=== PATIENT | female | born 1945 | race Caucasian/White ===

== ENCOUNTER 2018-08-17 09:29 | Inpatient (IN) | payer MEDICARE, OTHER | END 2018-08-21 15:30 | disposition home or self-care (01) | LOC: TELE-WESTW 21:20 → ER 09:29 → TELE 13:29 → TELE-WESTW 21:25 | DX: A41.9 Sepsis, unspecified organism (principal); J18.1 Lobar pneumonia, unspecified organism; N17.0 Acute kidney failure with tubular necrosis; E87.1 Hypo-osmolality and hyponatremia; J44.0 Chronic obstructive pulmonary disease with (acute) lower respiratory infection; E87.8 Other disorders of electrolyte and fluid balance, not elsewhere classified; E87.6 Hypokalemia; R06.03 Acute respiratory distress; I10 Essential (primary) hypertension; R79.1 Abnormal coagulation profile; Z96.651 Presence of right artificial knee joint; I12.9 Hypertensive chronic kidney disease with stage 1 through stage 4 chronic kidney disease, or unspecified chronic kidney disease; Z85.3 Personal history of malignant neoplasm of breast; N18.9 Chronic kidney disease, unspecified; D63.8 Anemia in other chronic diseases classified elsewhere ==

== ENCOUNTER → 2018-09-07 | Outpatient (CLI) | payer MEDICARE ==
[~2018-09-07] MED LIST: AMLO5TAB13 PO; LORA-655 PO; LOSA-46 PO
[2018-09-07 08:15] LABS: Basophils # (auto) 0.1 uL; Basophils % (auto) 1.4 % (0.0-2.0); Eosinophils # (auto) 0.4 uL; Eosinophils % (auto) 8.1 % (0.0-7.0); Hematocrit 40.9 % (36.0-46.0); Hemoglobin 13.7 g/dL (12.2-16.2); Lymphocytes # (auto) 1.4 uL; Lymphocytes % (auto) 30.6 % (10.0-50.0); Mean Corpuscular Hemoglobin 29.5 pg (28.0-32.0); Mean Corpuscular Hgb Conc. 33.5 g/dL (32.0-36.0); Monocytes # (auto) 0.6 uL; Monocytes % (auto) 12.9 % (0.0-12.0); Neutrophils # (auto) 2.1 uL; Nucleated Red Blood Cells % 0.2 %; Platelet Count (auto) 212 10^3/uL (140-450); Red Blood Cells 4.65 10^6/uL (4.0-5.20); Red Cell Distribution Width 14.8 % (11.8-14.3); White Blood Cell 4.5 10^3/uL (4.4-10.8)
[2018-09-07 08:38] LABS: Cholesterol 187 mg/dL (< 200); HDL Cholesterol 62 mg/dL (40-59); LDL Cholesterol 111 mg/dL (< 100); Triglycerides 92 mg/dL (< 150)
== END | disposition home or self-care (01) ==
LOC: LAB 07:23
PROVIDERS: ATTEND Internal Medicine
DX: D64.9 Anemia, unspecified (principal); I10 Essential (primary) hypertension
CPT/HCPCS: 36415; 80061; 85025

== ENCOUNTER → 2018-12-15 | Outpatient (CLI) | payer MEDICARE ==
[2018-12-15 11:35] LABS: Urine WBC None Seen /hpf (0 - 5)
[2018-12-15 11:44] LABS: Basophils # (auto) 0.1 uL; Basophils % (auto) 1.3 % (0.0-2.0); Eosinophils # (auto) 0.5 uL; Eosinophils % (auto) 7.1 % (0.0-7.0); Hematocrit 46.5 % (36.0-46.0); Hemoglobin 15.4 g/dL (12.2-16.2); Lymphocytes % (auto) 30.1 % (10.0-50.0); Mean Corpuscular Hemoglobin 28.8 pg (28.0-32.0); Mean Corpuscular Hgb Conc. 33.1 g/dL (32.0-36.0); Mean Corpuscular Volume 86.9 fL (80.0-100.0); Monocytes # (auto) 0.6 uL; Monocytes % (auto) 9.4 % (0.0-12.0); Neutrophils # (auto) 3.5 uL; Neutrophils % (auto) 52.1 % (37.0-80.0); Nucleated Red Blood Cells % 0.1 %; Platelet Count (auto) 178 10^3/uL (140-450); Red Blood Cells 5.36 10^6/uL (4.0-5.20); Red Cell Distribution Width 13.9 % (11.8-14.3); White Blood Cell 6.7 10^3/uL (4.4-10.8)
[2018-12-15 11:52] LABS: Urine Bacteria NONE SEEN /hpf (None Seen); Urine Blood Negative /uL (Negative); Urine Specific Gravity 1.007 (1.001-1.035)
[2018-12-15 11:58] LABS: INR 0.99 (0.9-1.15); Partial Thromboplastin Time 27.5 sec (23.64-32.05); Prothrombin Time 10.7 sec (9.06-12.60)
[2018-12-15 12:03] LABS: Albumin 4.1 g/dL (3.4-5.0); Calcium 9.3 mg/dL (8.5-10.1); Potassium 4.3 mmol/L (3.5-5.1)
[2018-12-15 12:08] LABS: BUN/Creatinine Ratio 28.6; Bilirubin, Total 0.5 mg/dL (0.2-1.0); Total Protein 7.9 g/dL (6.4-8.2)
== END | disposition home or self-care (01) ==
LOC: LAB 10:28
PROVIDERS: ATTEND Internal Medicine
DX: Z01.818 Encounter for other preprocedural examination (principal); J44.9 Chronic obstructive pulmonary disease, unspecified; I12.9 Hypertensive chronic kidney disease with stage 1 through stage 4 chronic kidney disease, or unspecified chronic kidney disease; N18.9 Chronic kidney disease, unspecified
CPT/HCPCS: 36415; 80053; 81001; 85025; 85610; 85730

== ENCOUNTER → 2019-04-28 | Outpatient (CLI) | payer MEDICARE ==
[~2019-04-28] MED LIST changes: -AMLO5TAB13 PO; +AMLO5TAB15 PO; -LOSA-46 PO; +LOSA-69 PO
== END | disposition home or self-care (01) ==
LOC: XYW 07:46
PROVIDERS: ATTEND Internal Medicine
DX: I10 Essential (primary) hypertension (principal)
CPT/HCPCS: 93306

== ENCOUNTER 2019-07-05 05:22 | Emergency (ER) | payer MEDICARE ==
[~2019-07-05] VITALS: Ht 167.6 cm; Wt 61.2 kg
[2019-07-05] MEDS ORDERED: cloNIDine HCL 0.1 MG TAB PO ONE (05:45)
[2019-07-05 06:25] LABS: Basophils # (auto) 0.1 uL; Basophils % (auto) 1.9 % (0.0-2.0); Eosinophils # (auto) 0.2 uL; Eosinophils % (auto) 4.2 % (0.0-7.0); Hematocrit 49.1 % (36.0-46.0); Hemoglobin 16.4 g/dL (12.2-16.2); Lymphocytes # (auto) 0.7 uL; Lymphocytes % (auto) 12.8 % (10.0-50.0); Mean Corpuscular Hemoglobin 28.8 pg (28.0-32.0); Mean Corpuscular Hgb Conc. 33.3 g/dL (32.0-36.0); Mean Corpuscular Volume 86.3 fL (80.0-100.0); Monocytes % (auto) 17.7 % (0.0-12.0); Neutrophils # (auto) 3.5 uL; Neutrophils % (auto) 63.4 % (37.0-80.0); Nucleated Red Blood Cells % 0.1 %; Platelet Count (auto) 182 10^3/uL (140-450); Red Blood Cells 5.69 10^6/uL (4.0-5.20); Red Cell Distribution Width 14.2 % (11.8-14.3); White Blood Cell 5.6 10^3/uL (4.4-10.8)
[2019-07-05 06:28] LABS: INR 1.06 (0.9-1.15); Partial Thromboplastin Time 29.1 sec (23.64-32.05)
[2019-07-05 06:33] LABS: Chloride 104 mmol/L (98-107); Potassium 3.7 mmol/L (3.5-5.1); Sodium 138 mmol/L (136-145)
[2019-07-05 06:42] LABS: Alanine Aminotransferase 28 U/L (13-56); Albumin 4.4 g/dL (3.4-5.0); Alkaline Phosphatase 95 U/L (45-117); Anion Gap 7 (5-15); Aspartate Aminotransferase 32 U/L (15-37); BUN/Creatinine Ratio 19.7; Bilirubin, Total 0.8 mg/dL (0.2-1.0); Blood Urea Nitrogen 15 mg/dL (7-18); Carbon Dioxide 27 mmol/L (21-32); GFR African American 95 mL/min; GFR Non-African American 79 mL/min; Glucose 105 mg/dL (74-106); Total Protein 8.5 g/dL (6.4-8.2)
[2019-07-05] MEDS ORDERED: SODIUM CHLORIDE 0.9% 1,000 ML IV ONE (07:56)
[2019-07-05] MEDS ORDERED: cefTRIAXone 1GM/50ML D5W 50 ML IV ONE (08:00)
[2019-07-05 09:18] VITALS: BP 129/68
== END 2019-07-05 09:36 | disposition home or self-care (01) ==
LOC: ER 05:22
DX: R00.0 Tachycardia, unspecified (principal); J47.9 Bronchiectasis, uncomplicated; I10 Essential (primary) hypertension; Z90.710 Acquired absence of both cervix and uterus; Z88.2 Allergy status to sulfonamides; Z88.8 Allergy status to other drugs, medicaments and biological substances; Z79.899 Other long term (current) drug therapy
CPT/HCPCS: 36415; 71045; 80053; 83880; 84484; 85025; 85610; 85730; 93005; 96365; 99284; J0696; J7030

== ENCOUNTER 2019-12-12 16:46 | Emergency (ER) | payer MEDICARE ==
[~2019-12-12] VITALS: Ht 152.4 cm; Wt 62.1 kg
[2019-12-12 17:37] LABS: Basophils # (auto) 0.1 10 ^3/uL (0-0.2); Basophils % (auto) 1.2 % (0.0-2.0); Eosinophils # (auto) 0.4 10 ^3/uL (0-0.8); Eosinophils % (auto) 4.8 % (0.0-7.0); Hematocrit 48.2 % (36.0-46.0); Hemoglobin 16.1 g/dL (12.2-16.2); Lymphocytes # (auto) 2.4 10 ^3/uL (0.4-5.4); Lymphocytes % (auto) 32.1 % (10.0-50.0); Mean Corpuscular Hemoglobin 29.4 pg (28.0-32.0); Mean Corpuscular Hgb Conc. 33.3 g/dL (32.0-36.0); Mean Corpuscular Volume 88.3 fL (80.0-100.0); Monocytes # (auto) 0.8 10 ^3/uL (0-1.3); Monocytes % (auto) 10.4 % (0.0-12.0); Neutrophils # (auto) 3.9 10 ^3/uL (1.6-8.6); Neutrophils % (auto) 51.5 % (37.0-80.0); Nucleated Red Blood Cells % 0.2 %; Platelet Count (auto) 205 10^3/uL (140-450); Red Blood Cells 5.46 10^6/uL (4.0-5.20); Red Cell Distribution Width 14.3 % (11.8-14.3); White Blood Cell 7.6 10^3/uL (4.4-10.8)
[2019-12-12 17:50] LABS: INR 1.01 (0.9-1.15); Partial Thromboplastin Time 28.2 sec (23.64-32.05)
[2019-12-12 20:13] LABS: Albumin 4.1 g/dL (3.4-5.0); BUN/Creatinine Ratio 28.7; Calcium 9.2 mg/dL (8.5-10.1); Potassium 3.8 mmol/L (3.5-5.1)
[2019-12-12 20:16] LABS: Bilirubin, Total 0.4 mg/dL (0.2-1.0); Total Protein 8.4 g/dL (6.4-8.2)
[2019-12-12 22:00] VITALS: BP 168/85
[2019-12-12] MEDS ORDERED: methylPREDNISolone SOD SUCC 40 MG/ML VL IV ONE (22:00)
== END 2019-12-12 21:39 | disposition left against medical advice (07) ==
LOC: ER 16:46
DX: J45.901 Unspecified asthma with (acute) exacerbation (principal); R04.2 Hemoptysis; I10 Essential (primary) hypertension; Z90.710 Acquired absence of both cervix and uterus
CPT/HCPCS: 36415; 71046; 80053; 85025; 85610; 85730; 96374; 99284; J2920

== ENCOUNTER 2019-12-14 16:28 | Inpatient (IN) | payer MEDICARE ==
[~2019-12-14] VITALS: Ht 167.6 cm; Wt 68.4 kg
[2019-12-14] MEDS ORDERED: ASPirin 81 mg TAB PO ONE (16:45)
[2019-12-14 17:34] LABS: Basophils # (auto) 0.1 10 ^3/uL (0-0.2); Basophils % (auto) 1.5 % (0.0-2.0); Eosinophils # (auto) 0.3 10 ^3/uL (0-0.8); Eosinophils % (auto) 3.4 % (0.0-7.0); Hematocrit 47.6 % (36.0-46.0); Hemoglobin 15.6 g/dL (12.2-16.2); Lymphocytes # (auto) 3.1 10 ^3/uL (0.4-5.4); Lymphocytes % (auto) 35.8 % (10.0-50.0); Mean Corpuscular Hemoglobin 29.4 pg (28.0-32.0); Mean Corpuscular Hgb Conc. 32.9 g/dL (32.0-36.0); Mean Corpuscular Volume 89.5 fL (80.0-100.0); Monocytes # (auto) 0.9 10 ^3/uL (0-1.3); Monocytes % (auto) 10.4 % (0.0-12.0); Neutrophils # (auto) 4.3 10 ^3/uL (1.6-8.6); Neutrophils % (auto) 48.9 % (37.0-80.0); Nucleated Red Blood Cells % 0.1 %; Platelet Count (auto) 214 10^3/uL (140-450); Red Blood Cells 5.32 10^6/uL (4.0-5.20); Red Cell Distribution Width 14.1 % (11.8-14.3); White Blood Cell 8.7 10^3/uL (4.4-10.8)
[2019-12-14 17:47] LABS: INR 1.01 (0.9-1.15); Partial Thromboplastin Time 26.8 sec (23.64-32.05)
[2019-12-14 17:52] LABS: Albumin 4.1 g/dL (3.4-5.0); Anion Gap 2 (5-15); Blood Urea Nitrogen 23 mg/dL (7-18); Calcium 9.3 mg/dL (8.5-10.1); Carbon Dioxide 31 mmol/L (21-32); Chloride 105 mmol/L (98-107); Glucose 94 mg/dL (74-106); Potassium 5.2 mmol/L (3.5-5.1); Sodium 138 mmol/L (136-145)
[2019-12-14 17:54] LABS: Alanine Aminotransferase 27 U/L (13-56); Aspartate Aminotransferase 27 U/L (15-37); BUN/Creatinine Ratio 28.8; GFR African American 90 mL/min; GFR Non-African American 74 mL/min
[2019-12-14 18:01] LABS: Alkaline Phosphatase 100 U/L (45-117); Bilirubin, Total 0.4 mg/dL (0.2-1.0); Total Protein 8.4 g/dL (6.4-8.2)
[2019-12-14] MEDS ORDERED: cloNIDine HCL 0.1 MG TAB PO PRN (21:15)
[2019-12-14] MEDS ORDERED: DOCUSATE SOD 100 MG CAP PO PRN (21:15)
[2019-12-14] MEDS: HCTZ 25 MG TAB PO SCH (21:22)
[2019-12-14] MEDS ORDERED: NITROGLYCERIN 0.4 MG SL TAB SL PRN (21:30)
[2019-12-14] MEDS ORDERED: MORPHINE SULF INJ 2 MG/ML SYRINGE 1ML IV PRN (21:30)
[2019-12-14] MEDS: ENOXAPARIN SOD 40 MG/0.4 ML SYRINGE SC SCH (22:00)
[2019-12-14] MEDS: FAMOTIDINE 20 MG TAB PO SCH (22:00)
[2019-12-14 23:28] VITALS: BP 145/86
[2019-12-14] MEDS ORDERED: ASPI81CH43 PO (23:45)
[2019-12-14] MEDS ORDERED: METO25TA5 PO (23:46)
[2019-12-15 05:00] VITALS: BP 140/78
[2019-12-15 06:10] LABS: Basophils # (auto) 0.2 10 ^3/uL (0-0.2); Basophils % (auto) 3.7 % (0.0-2.0); Eosinophils # (auto) 0.4 10 ^3/uL (0-0.8); Eosinophils % (auto) 5.9 % (0.0-7.0); Hematocrit 42.1 % (36.0-46.0); Hemoglobin 14.4 g/dL (12.2-16.2); Lymphocytes % (auto) 31.7 % (10.0-50.0); Mean Corpuscular Hgb Conc. 34.2 g/dL (32.0-36.0); Mean Corpuscular Volume 87.5 fL (80.0-100.0); Monocytes # (auto) 0.7 10 ^3/uL (0-1.3); Monocytes % (auto) 11.8 % (0.0-12.0); Neutrophils # (auto) 2.9 10 ^3/uL (1.6-8.6); Neutrophils % (auto) 46.9 % (37.0-80.0); Nucleated Red Blood Cells % 0.1 %; Platelet Count (auto) 169 10^3/uL (140-450); Red Blood Cells 4.81 10^6/uL (4.0-5.20); White Blood Cell 6.2 10^3/uL (4.4-10.8)
[2019-12-15 06:31] LABS: Potassium 3.9 mmol/L (3.5-5.1)
[2019-12-15 06:35] LABS: BUN/Creatinine Ratio 33.8; Calcium 8.9 mg/dL (8.5-10.1)
[2019-12-15 08:00] VITALS: BP_SYST 119; BP_SYST 136; BP_DIAS 59; BP_DIAS 78
[2019-12-15] MEDS: ENOXAPARIN SOD 40 MG/0.4 ML SYRINGE SC SCH (09:30)
[2019-12-15] MEDS: FAMOTIDINE 20 MG TAB PO SCH ×3 (09:30→22:15)
[2019-12-15] MEDS: ASPirin 81 mg TAB PO SCH (09:31)
[2019-12-15] MEDS: HCTZ 25 MG TAB PO SCH (09:32)
[2019-12-15] MEDS ORDERED: LOSARTAN POTASSIUM 50 MG TAB PO SCH (10:00)
[2019-12-15] MEDS: LOSARTAN POTASSIUM 50 MG TAB PO SCH (10:50)
[2019-12-15 12:00] VITALS: BP 125/58
[2019-12-15 12:37] LABS: Cholesterol 164 mg/dL (< 200)
[2019-12-15 12:40] LABS: HDL Cholesterol 74 mg/dL (40-59); LDL Cholesterol 78 mg/dL (< 100); Triglycerides 80 mg/dL (< 150)
[2019-12-15 16:57] VITALS: BP 122/73
[2019-12-15 22:00] VITALS: BP 113/70
[2019-12-16 04:56] VITALS: BP 130/70
[2019-12-16 08:00] VITALS: BP_SYST 104; BP_SYST 136; BP_DIAS 65; BP_DIAS 78
[2019-12-16] MEDS: ASPirin 81 mg TAB PO SCH (08:56)
[2019-12-16] MEDS: HCTZ 25 MG TAB PO SCH (08:58)
[2019-12-16] MEDS: FAMOTIDINE 20 MG TAB PO SCH ×2 (08:58→21:27)
[2019-12-16] MEDS: ENOXAPARIN SOD 40 MG/0.4 ML SYRINGE SC SCH (08:58)
[2019-12-16] MEDS: ACETAMINOPHEN 325 MG TAB PO PRN ×2 (09:02→20:29)
[2019-12-16] MEDS: LOSARTAN POTASSIUM 50 MG TAB PO SCH (10:00)
[2019-12-16 12:00] VITALS: BP 120/73
[2019-12-16 14:16] LABS: Urine Bacteria NONE SEEN /hpf (None Seen); Urine Blood Negative /uL (Negative); Urine Mucus FEW (None Seen); Urine Specific Gravity 1.016 (1.001-1.035); Urine WBC 1 /hpf (0 - 5)
[2019-12-16 16:30] VITALS: BP 138/78
[2019-12-16 20:00] VITALS: BP 108/66
[2019-12-16] MEDS: TEMAZEPAM 15 MG CAP PO PRN (21:29)
[2019-12-16 21:38] VITALS: BP 108/66
[2019-12-17 05:06] VITALS: BP 129/63
[2019-12-17] MEDS: ACETAMINOPHEN 325 MG TAB PO PRN ×2 (05:36→14:45)
[2019-12-17 08:00] VITALS: BP 121/67
[2019-12-17] MEDS ORDERED: FLUMAZENIL 0.1 MG/ML INJ 10ML MDV IV ONE (08:10)
[2019-12-17] MEDS ORDERED: EPINEPHrine HCL 1 MG/1 ML AMP ONE (08:10)
[2019-12-17] MEDS ORDERED: SODIUM CHLORIDE LOCK 10 ML ONE ×2 (08:10→08:13)
[2019-12-17] MEDS ORDERED: NALOXONE HCL 0.4 MG/ML VIAL ONE (08:10)
[2019-12-17] MEDS ORDERED: LIDOCAINE 2%HCL (LOCAL ANESTH.) INJ 20ML MDV ONE (08:10)
[2019-12-17] MEDS ORDERED: LIDOCAINE HCL 2% TOP JELLY 5ML TOP ONE (08:11)
[2019-12-17] MEDS ORDERED: diphenhdrAMINE HCL 50 MG/1 ML VL ONE (08:11)
[2019-12-17] MEDS ORDERED: GLYCOPYRROLATE 0.2 MG/ML 1ML VIAL ONE (08:11)
[2019-12-17] MEDS ORDERED: ACETYLCYSTEINE 10 %(100MG/ML) SOL 4ML NEB ONE (08:30)
[2019-12-17] MEDS: LOSARTAN POTASSIUM 50 MG TAB PO SCH (08:46)
[2019-12-17] MEDS: fentaNYL CITRATE 100 MCG/2 ML VL ONE ×2 (09:56→09:58)
[2019-12-17] MEDS: MIDAZOLAM HCL 5 MG/ML-1ML VIAL ONE ×2 (09:57→09:59)
[2019-12-17 12:00] VITALS: BP 127/79
[2019-12-17] MEDS: FAMOTIDINE 20 MG TAB PO SCH ×2 (12:56→21:33)
[2019-12-17] MEDS: ASPirin 81 mg TAB PO SCH (12:56)
[2019-12-17] MEDS: HCTZ 25 MG TAB PO SCH (12:58)
[2019-12-17] MEDS: ENOXAPARIN SOD 40 MG/0.4 ML SYRINGE SC SCH (12:59)
[2019-12-17 17:00] VITALS: BP 106/64
[2019-12-17] MEDS: TEMAZEPAM 15 MG CAP PO PRN (21:33)
[2019-12-17 22:27] VITALS: BP 91/45
[2019-12-18 05:12] VITALS: BP 154/75
[2019-12-18 09:00] VITALS: BP 107/50
[2019-12-18] MEDS: LOSARTAN POTASSIUM 50 MG TAB PO SCH (09:38)
[2019-12-18] MEDS: ASPirin 81 mg TAB PO SCH (09:38)
[2019-12-18] MEDS: ENOXAPARIN SOD 40 MG/0.4 ML SYRINGE SC SCH (09:40)
[2019-12-18] MEDS: FAMOTIDINE 20 MG TAB PO SCH (09:40)
[2019-12-18] MEDS: HCTZ 25 MG TAB PO SCH (09:40)
[2019-12-18 11:31] VITALS: BP 107/50
== END 2019-12-18 12:00 | disposition home or self-care (01) | DRG 206 ==
LOC: ER 16:28 → TELE 16:29 → TELE-EAST 22:40
PROVIDERS: ADMIT Nurse Practitioner; ATTEND Family Medicine
PROC: 0B9D8ZX Drainage of Right Middle Lung Lobe, Via Natural or Artificial Opening Endoscopic, Diagnostic (ICD-10-PCS; principal; 2019-12-17 09:45)
DX: J98.4 Other disorders of lung (principal); R04.2 Hemoptysis; J98.11 Atelectasis; A31.9 Mycobacterial infection, unspecified; I20.0 Unstable angina; J18.9 Pneumonia, unspecified organism; I10 Essential (primary) hypertension; J47.9 Bronchiectasis, uncomplicated; F41.9 Anxiety disorder, unspecified; I72.8 Aneurysm of other specified arteries; Z80.1 Family history of malignant neoplasm of trachea, bronchus and lung; Z90.710 Acquired absence of both cervix and uterus
CPT/HCPCS: 31624; 36415; 71045; 71250; 80048; 80053; 80061; 81001; 84443; 84484; 85025; 85379; 85610; 85730; 87070; 87077; 87186; 87205; 93005; G0378; J0171; J2250

== ENCOUNTER 2020-05-04 08:47 | Emergency (ER) | payer MEDICARE ==
[~2020-05-04] VITALS: Ht 167.6 cm; Wt 63.5 kg
[~2020-05-04 08:47] MED LIST changes: -AMLO5TAB15 PO; +ASPI81CH43 PO; -LORA-655 PO; -LOSA-69 PO; +METO25TA5 PO
[2020-05-04] MEDS ORDERED: SODIUM CHLORIDE 0.9% 1,000 ML IV ONE ×2 (09:15)
[2020-05-04 09:37] LABS: Basophils # (auto) 0.1 10 ^3/uL (0-0.2); Basophils % (auto) 1.2 % (0.0-2.0); Eosinophils # (auto) 0.3 10 ^3/uL (0-0.8); Eosinophils % (auto) 5.2 % (0.0-7.0); Hematocrit 44.4 % (36.0-46.0); Lymphocytes # (auto) 1.6 10 ^3/uL (0.4-5.4); Lymphocytes % (auto) 26.6 % (10.0-50.0); Mean Corpuscular Hemoglobin 29.8 pg (28.0-32.0); Mean Corpuscular Hgb Conc. 33.8 g/dL (32.0-36.0); Mean Corpuscular Volume 88.2 fL (80.0-100.0); Monocytes # (auto) 0.6 10 ^3/uL (0-1.3); Monocytes % (auto) 9.3 % (0.0-12.0); Neutrophils # (auto) 3.5 10 ^3/uL (1.6-8.6); Neutrophils % (auto) 57.7 % (37.0-80.0); Nucleated Red Blood Cells % 0.1 %; Platelet Count (auto) 186 10^3/uL (140-450); Red Blood Cells 5.03 10^6/uL (4.0-5.20); Red Cell Distribution Width 13.7 % (11.8-14.3); White Blood Cell 6.1 10^3/uL (4.4-10.8)
[2020-05-04 09:45] LABS: BUN/Creatinine Ratio 28.6; Calcium 8.8 mg/dL (8.5-10.1); Potassium 3.7 mmol/L (3.5-5.1)
[2020-05-04 09:50] LABS: Bilirubin, Total 0.4 mg/dL (0.2-1.0); Total Protein 7.6 g/dL (6.4-8.2)
[2020-05-04 11:14] VITALS: BP 156/82
== END 2020-05-04 11:16 | disposition home or self-care (01) ==
LOC: ER 08:47
DX: R07.89 Other chest pain (principal); F41.9 Anxiety disorder, unspecified; J45.909 Unspecified asthma, uncomplicated; I10 Essential (primary) hypertension; Z79.899 Other long term (current) drug therapy; Z90.10 Acquired absence of unspecified breast and nipple; Z88.7 Allergy status to serum and vaccine; Z88.2 Allergy status to sulfonamides; Z88.8 Allergy status to other drugs, medicaments and biological substances
CPT/HCPCS: 36415; 71045; 80053; 84484; 85025; 93005; 96360

== ENCOUNTER 2020-10-21 11:40 | Emergency (ER) | payer MEDICARE ==
[~2020-10-21] VITALS: Ht 167.6 cm; Wt 64.0 kg
[2020-10-21 12:38] LABS: Urine Bacteria NONE SEEN /hpf (None Seen); Urine Blood Negative /uL (Negative); Urine Specific Gravity 1.004 (1.001-1.035); Urine WBC <1 /hpf (0 - 5)
[2020-10-21 12:44] LABS: Basophils # (auto) 0.1 10 ^3/uL (0-0.2); Basophils % (auto) 1.1 % (0.0-2.0); Eosinophils # (auto) 0.3 10 ^3/uL (0-0.8); Eosinophils % (auto) 5.5 % (0.0-7.0); Hematocrit 44.4 % (36.0-46.0); Hemoglobin 15.1 g/dL (12.2-16.2); Lymphocytes # (auto) 1.6 10 ^3/uL (0.4-5.4); Lymphocytes % (auto) 25.6 % (10.0-50.0); Mean Corpuscular Hemoglobin 29.8 pg (28.0-32.0); Mean Corpuscular Volume 87.7 fL (80.0-100.0); Monocytes # (auto) 0.7 10 ^3/uL (0-1.3); Monocytes % (auto) 10.7 % (0.0-12.0); Neutrophils # (auto) 3.5 10 ^3/uL (1.6-8.6); Neutrophils % (auto) 57.1 % (37.0-80.0); Nucleated Red Blood Cells % 0.1 %; Platelet Count (auto) 188 10^3/uL (140-450); Red Blood Cells 5.06 10^6/uL (4.0-5.20); Red Cell Distribution Width 13.9 % (11.8-14.3); White Blood Cell 6.1 10^3/uL (4.4-10.8)
[2020-10-21 12:59] LABS: INR 1.02 (0.9-1.15); Partial Thromboplastin Time 24.8 sec (23.0-31.2)
[2020-10-21 13:03] LABS: Alanine Aminotransferase 25 U/L (13-56); Albumin 4.2 g/dL (3.4-5.0); Anion Gap 7 (5-15); Aspartate Aminotransferase 30 U/L (15-37); BUN/Creatinine Ratio 15.1; Blood Urea Nitrogen 11 mg/dL (7-18); Carbon Dioxide 27 mmol/L (21-32); Chloride 104 mmol/L (98-107); GFR African American 99 mL/min; GFR Non-African American 82 mL/min; Glucose 95 mg/dL (74-106); Magnesium 2.1 mg/dL (1.6-2.6); Potassium 3.9 mmol/L (3.5-5.1); Sodium 138 mmol/L (136-145)
[2020-10-21 13:08] LABS: Alkaline Phosphatase 77 U/L (45-117); Bilirubin, Total 0.6 mg/dL (0.2-1.0)
[2020-10-21 13:58] VITALS: BP 140/68
== END 2020-10-21 14:37 | disposition home or self-care (01) ==
LOC: ER 11:40
DX: J18.9 Pneumonia, unspecified organism (principal); R07.89 Other chest pain; I10 Essential (primary) hypertension; Z90.710 Acquired absence of both cervix and uterus
CPT/HCPCS: 36415; 71046; 80053; 81001; 83735; 83880; 84484; 85025; 85610; 85730; 93005

== ENCOUNTER → 2020-10-27 | Outpatient (CLI) | payer MEDICARE ==
[~2020-10-27] MED LIST changes: +IOHEXOL 350 MG/ML 100ML IJ ONE
== END | disposition home or self-care (01) ==
LOC: CT 15:12
PROVIDERS: ATTEND Internal Medicine
DX: J47.9 Bronchiectasis, uncomplicated (principal); I51.7 Cardiomegaly; K44.9 Diaphragmatic hernia without obstruction or gangrene
CPT/HCPCS: 71275; Q9967

== ENCOUNTER → 2022-03-27 | Outpatient (CLI) | payer MEDICARE ==
[~2022-03-27] MED LIST changes: -IOHEXOL 350 MG/ML 100ML IJ ONE
[2022-03-27 07:35] LABS: Basophils # (auto) 0.1 10 ^3/uL (0-0.2); Basophils % (auto) 1.2 % (0.0-2.0); Eosinophils # (auto) 0.2 10 ^3/uL (0-0.8); Eosinophils % (auto) 3.1 % (0.0-7.0); Hematocrit 44.7 % (36.0-46.0); Lymphocytes # (auto) 1.6 10 ^3/uL (0.4-5.4); Lymphocytes % (auto) 29.7 % (10.0-50.0); Mean Corpuscular Hemoglobin 29.5 pg (28.0-32.0); Mean Corpuscular Hgb Conc. 33.5 g/dL (32.0-36.0); Mean Corpuscular Volume 88.1 fL (80.0-100.0); Monocytes # (auto) 0.6 10 ^3/uL (0-1.3); Monocytes % (auto) 11.8 % (0.0-12.0); Neutrophils % (auto) 54.2 % (37.0-80.0); Red Blood Cells 5.07 10^6/uL (4.0-5.20); Red Cell Distribution Width 13.4 % (11.8-14.3); White Blood Cell 5.5 10^3/uL (4.4-10.8)
[2022-03-27 07:52] LABS: Calcium 9.2 mg/dL (8.5-10.1); Potassium 3.8 mmol/L (3.5-5.1)
[2022-03-27 07:55] LABS: BUN/Creatinine Ratio 19.8; Bilirubin, Total 0.5 mg/dL (0.2-1.0); Total Protein 7.4 g/dL (6.4-8.2)
== END | disposition home or self-care (01) ==
LOC: LAB 06:47
PROVIDERS: ATTEND Internal Medicine
DX: E04.1 Nontoxic single thyroid nodule (principal); I10 Essential (primary) hypertension; J44.9 Chronic obstructive pulmonary disease, unspecified; A31.0 Pulmonary mycobacterial infection
CPT/HCPCS: 36415; 80053; 82607; 84443; 85025

== ENCOUNTER → 2022-08-23 | Outpatient (CLI) | payer MEDICARE ==
[2022-08-23 08:16] LABS: Basophils # (auto) 0.1 10 ^3/uL (0-0.2); Basophils % (auto) 1.7 % (0.0-2.0); Eosinophils # (auto) 0.2 10 ^3/uL (0-0.8); Eosinophils % (auto) 4.4 % (0.0-7.0); Hematocrit 48.5 % (36.0-46.0); Hemoglobin 16.3 g/dL (12.2-16.2); Lymphocytes # (auto) 1.9 10 ^3/uL (0.4-5.4); Lymphocytes % (auto) 36.1 % (10.0-50.0); Mean Corpuscular Hemoglobin 29.2 pg (28.0-32.0); Mean Corpuscular Hgb Conc. 33.5 g/dL (32.0-36.0); Monocytes # (auto) 0.7 10 ^3/uL (0-1.3); Monocytes % (auto) 13.6 % (0.0-12.0); Neutrophils # (auto) 2.4 10 ^3/uL (1.6-8.6); Neutrophils % (auto) 44.2 % (37.0-80.0); Nucleated Red Blood Cells % 0.2 %; Red Blood Cells 5.58 10^6/uL (4.0-5.20); Red Cell Distribution Width 13.7 % (11.8-14.3); White Blood Cell 5.3 10^3/uL (4.4-10.8)
[2022-08-23 08:38] LABS: Albumin 4.3 g/dL (3.4-5.0); Calcium 9.4 mg/dL (8.5-10.1); Potassium 3.4 mmol/L (3.5-5.1)
[2022-08-23 08:41] LABS: BUN/Creatinine Ratio 28.8; Bilirubin, Total 0.5 mg/dL (0.2-1.0)
== END | disposition home or self-care (01) ==
LOC: LAB 07:56
PROVIDERS: ATTEND Internal Medicine
DX: I10 Essential (primary) hypertension (principal); A31.0 Pulmonary mycobacterial infection; R63.4 Abnormal weight loss
CPT/HCPCS: 36415; 80053; 84443; 85025

== ENCOUNTER 2022-11-20 13:28 | Emergency (ER) | payer MEDICARE ==
[~2022-11-20] VITALS: Ht 167.6 cm; Wt 52.9 kg
[2022-11-20 14:00] VITALS: BP 143/97
[2022-11-20 15:14] LABS: Basophils # (auto) 0.1 10 ^3/uL (0-0.2); Eosinophils # (auto) 0.1 10 ^3/uL (0-0.8); Eosinophils % (auto) 1.4 % (0.0-7.0); Hematocrit 47.9 % (36.0-46.0); Hemoglobin 16.4 g/dL (12.2-16.2); Lymphocytes # (auto) 0.4 10 ^3/uL (0.4-5.4); Lymphocytes % (auto) 5.9 % (10.0-50.0); Mean Corpuscular Hemoglobin 29.6 pg (28.0-32.0); Mean Corpuscular Hgb Conc. 34.3 g/dL (32.0-36.0); Mean Corpuscular Volume 86.2 fL (80.0-100.0); Monocytes # (auto) 1.2 10 ^3/uL (0-1.3); Monocytes % (auto) 17.7 % (0.0-12.0); Nucleated Red Blood Cells % 0.2 %; Red Blood Cells 5.56 10^6/uL (4.0-5.20); Red Cell Distribution Width 14.2 % (11.8-14.3); White Blood Cell 6.7 10^3/uL (4.4-10.8)
[2022-11-20 15:34] LABS: Potassium 3.6 mmol/L (3.5-5.1)
[2022-11-20 15:42] LABS: Albumin 4.7 g/dL (3.4-5.0); BUN/Creatinine Ratio 19.2 (10.0-20.0); Bilirubin, Total 0.8 mg/dL (0.2-1.0); Calcium 9.3 mg/dL (8.5-10.1); Total Protein 8.1 g/dL (6.4-8.2)
== END 2022-11-21 00:35 | disposition left against medical advice (07) ==
LOC: ER 13:28
DX: R06.02 Shortness of breath (principal); R05.9 Cough, unspecified; J45.909 Unspecified asthma, uncomplicated; I10 Essential (primary) hypertension; Z90.710 Acquired absence of both cervix and uterus
CPT/HCPCS: 36415; 71045; 80053; 84484; 85025; 93005

== ENCOUNTER 2022-12-23 13:45 | Emergency (ER) | payer MEDICARE ==
[~2022-12-23] VITALS: Ht 167.6 cm; Wt 60.0 kg
[2022-12-23 14:43] LABS: Basophils # (auto) 0.1 10 ^3/uL (0-0.2); Basophils % (auto) 0.9 % (0.0-2.0); Eosinophils # (auto) 0.4 10 ^3/uL (0-0.8); Eosinophils % (auto) 4.9 % (0.0-7.0); Hematocrit 43.2 % (36.0-46.0); Hemoglobin 14.5 g/dL (12.2-16.2); Lymphocytes # (auto) 1.6 10 ^3/uL (0.4-5.4); Lymphocytes % (auto) 21.5 % (10.0-50.0); Mean Corpuscular Hemoglobin 29.4 pg (28.0-32.0); Mean Corpuscular Hgb Conc. 33.6 g/dL (32.0-36.0); Mean Corpuscular Volume 87.5 fL (80.0-100.0); Monocytes # (auto) 0.9 10 ^3/uL (0-1.3); Monocytes % (auto) 12.1 % (0.0-12.0); Neutrophils # (auto) 4.4 10 ^3/uL (1.6-8.6); Neutrophils % (auto) 60.6 % (37.0-80.0); Nucleated Red Blood Cells % 0.1 %; Red Blood Cells 4.94 10^6/uL (4.0-5.20); White Blood Cell 7.3 10^3/uL (4.4-10.8)
[2022-12-23 14:59] LABS: Albumin 3.8 g/dL (3.4-5.0); Calcium 8.9 mg/dL (8.5-10.1); Potassium 4.2 mmol/L (3.5-5.1)
[2022-12-23 15:04] LABS: BUN/Creatinine Ratio 25.9 (10.0-20.0); Bilirubin, Total 0.4 mg/dL (0.2-1.0)
[2022-12-23] MEDS ORDERED: MECLIZINE HCL 25 MG TAB PO ONE (15:30)
[2022-12-23 16:30] VITALS: BP 152/98
== END 2022-12-23 16:35 | disposition home or self-care (01) ==
LOC: ER 13:45
DX: R42 Dizziness and giddiness (principal); J44.9 Chronic obstructive pulmonary disease, unspecified; I10 Essential (primary) hypertension; Z90.710 Acquired absence of both cervix and uterus
CPT/HCPCS: 36415; 70450; 80053; 84484; 85025; 93005; 99284; J8597

== ENCOUNTER → 2023-01-23 | Outpatient (CLI) | payer MEDICARE | END | disposition home or self-care (01) | LOC: LAB 09:38 | PROVIDERS: ATTEND Internal Medicine | DX: I10 Essential (primary) hypertension (principal); J44.9 Chronic obstructive pulmonary disease, unspecified; E04.1 Nontoxic single thyroid nodule | CPT/HCPCS: 36415; 84443 ==

== ENCOUNTER → 2023-01-28 | Outpatient (CLI) | payer MEDICARE ==
[2023-01-28 09:24] LABS: Cholesterol 191 mg/dL (< 200); HDL Cholesterol 82 mg/dL (40-59); LDL Cholesterol 91 mg/dL (< 100); Triglycerides 61 mg/dL (< 150)
== END | disposition home or self-care (01) ==
LOC: LAB 08:35
PROVIDERS: ATTEND Internal Medicine
DX: I10 Essential (primary) hypertension (principal); J44.9 Chronic obstructive pulmonary disease, unspecified; E04.1 Nontoxic single thyroid nodule
CPT/HCPCS: 36415; 80061

== ENCOUNTER 2023-08-04 08:38 | Emergency (ER) | payer MEDICARE ==
[~2023-08-04] VITALS: Ht 167.6 cm; Wt 54.8 kg
[2023-08-04] MEDS ORDERED: cloNIDine HCL 0.1 MG TAB PO ONE (09:00)
[2023-08-04 09:25] LABS: Basophils # (auto) 0.1 10 ^3/uL (0-0.2); Basophils % (auto) 2.2 % (0.0-2.0); Eosinophils # (auto) 0.3 10 ^3/uL (0-0.8); Eosinophils % (auto) 4.7 % (0.0-7.0); Hemoglobin 15.6 g/dL (12.2-16.2); Lymphocytes # (auto) 1.8 10 ^3/uL (0.4-5.4); Lymphocytes % (auto) 28.3 % (10.0-50.0); Mean Corpuscular Hemoglobin 29.4 pg (28.0-32.0); Mean Corpuscular Hgb Conc. 32.5 g/dL (32.0-36.0); Mean Corpuscular Volume 90.3 fL (80.0-100.0); Monocytes # (auto) 0.8 10 ^3/uL (0-1.3); Monocytes % (auto) 12.9 % (0.0-12.0); Neutrophils # (auto) 3.3 10 ^3/uL (1.6-8.6); Neutrophils % (auto) 51.9 % (37.0-80.0); Nucleated Red Blood Cells % 0.1 %; Red Blood Cells 5.32 10^6/uL (4.0-5.20); Red Cell Distribution Width 14.5 % (11.8-14.3); White Blood Cell 6.3 10^3/uL (4.4-10.8)
[2023-08-04 09:48] LABS: Chloride 101 mmol/L (98-107); Sodium 138 mmol/L (136-145)
[2023-08-04 09:49] LABS: Anion Gap 5 (5-15); Calcium 10.1 mg/dL (8.5-10.1); Carbon Dioxide 32 mmol/L (20-30)
[2023-08-04 09:54] LABS: BUN/Creatinine Ratio 12.5 (10.0-20.0); Blood Urea Nitrogen 10 mg/dL (9-23); Glucose 82 mg/dL (74-106)
[2023-08-04] MEDS ORDERED: ALBUTEROL SULF 2.5 MG/0.5ML(0.5%) NEB SOLN NEB PRN (13:30)
[2023-08-04] MEDS ORDERED: hydrALAZINE HCL 20 MG/ML VL IV PRN (13:30)
[2023-08-04 15:06] VITALS: BP 152/98; PULSE 96; RESP 17; TEMP 98.1; O2SAT 94
[2023-08-05] MEDS ORDERED: ASPirin 81 mg TAB PO SCH (10:00)
[2023-08-06] MEDS ORDERED: METOPROLOL TARTRATE 25 MG TAB PO SCH (10:00)
== END 2023-08-04 13:56 | disposition left against medical advice (07) ==
LOC: ER 08:38
DX: R42 Dizziness and giddiness (principal); R53.1 Weakness; I10 Essential (primary) hypertension; R22.32 Localized swelling, mass and lump, left upper limb; J44.9 Chronic obstructive pulmonary disease, unspecified; Z90.710 Acquired absence of both cervix and uterus; Z79.82 Long term (current) use of aspirin; Z79.899 Other long term (current) drug therapy; Z88.2 Allergy status to sulfonamides; Z88.8 Allergy status to other drugs, medicaments and biological substances
CPT/HCPCS: 36415; 80048; 85025; 93005; 93971

== ENCOUNTER 2023-08-14 08:24 | Emergency (ER) | payer MEDICARE ==
[~2023-08-14] VITALS: Ht 167.6 cm; Wt 55.0 kg
[2023-08-14 09:04] VITALS: BP 168/99; PULSE 98; RESP 18; TEMP 98.5; O2SAT 93
== END 2023-08-14 10:52 | disposition home or self-care (01) ==
LOC: ER 08:24
DX: D17.22 Benign lipomatous neoplasm of skin and subcutaneous tissue of left arm (principal); L72.9 Follicular cyst of the skin and subcutaneous tissue, unspecified
CPT/HCPCS: 76881

== ENCOUNTER 2023-09-07 08:13 | Emergency (ER) | payer MEDICARE ==
[~2023-09-07] VITALS: Ht 167.6 cm; Wt 52.4 kg
[2023-09-07 08:13] VITALS: TEMP 97.5
[2023-09-07 08:23] VITALS: BP 153/92; RESP 17; O2SAT 97
[2023-09-07 08:36] VITALS: PULSE 115
[2023-09-07] MEDS ORDERED: CEPH250C PO (09:49)
== END 2023-09-07 09:49 | disposition home or self-care (01) ==
LOC: ER 08:13
DX: M71.322 Other bursal cyst, left elbow (principal); J44.9 Chronic obstructive pulmonary disease, unspecified; I10 Essential (primary) hypertension; Z90.710 Acquired absence of both cervix and uterus; Z79.82 Long term (current) use of aspirin; Z79.899 Other long term (current) drug therapy; Z88.2 Allergy status to sulfonamides; Z88.8 Allergy status to other drugs, medicaments and biological substances
CPT/HCPCS: 93005

== ENCOUNTER → 2023-09-19 | Outpatient (CLI) | payer MEDICARE ==
[~2023-09-19] MED LIST changes: +CEPH250C PO
[2023-09-19 11:16] LABS: Chloride 105 mmol/L (98-107); Potassium 3.9 mmol/L (3.5-5.1); Sodium 140 mmol/L (136-145)
[2023-09-19 11:17] LABS: Anion Gap 4 (5-15); Calcium 9.5 mg/dL (8.7-10.4); Carbon Dioxide 31 mmol/L (20-30)
[2023-09-19 11:22] LABS: BUN/Creatinine Ratio 15.1 (10.0-20.0); Blood Urea Nitrogen 11 mg/dL (9-23); Glucose 98 mg/dL (74-106)
== END | disposition home or self-care (01) ==
LOC: LAB 10:28
PROVIDERS: ATTEND Internal Medicine
DX: L03.116 Cellulitis of left lower limb (principal); L03.114 Cellulitis of left upper limb
CPT/HCPCS: 36415; 80048

== ENCOUNTER → 2023-10-01 | Outpatient (CLI) | payer MEDICARE ==
[2023-10-01 07:30] LABS: Anion Gap 5 (5-15); Carbon Dioxide 32 mmol/L (20-30); Chloride 102 mmol/L (98-107); Potassium 3.6 mmol/L (3.5-5.1); Sodium 139 mmol/L (136-145)
[2023-10-01 07:32] LABS: Calcium 9.9 mg/dL (8.5-10.1)
[2023-10-01 07:36] LABS: Blood Urea Nitrogen 12 mg/dL (9-23); Glucose 94 mg/dL (74-106)
[2023-10-01 07:45] LABS: Erythrocyte Sedimentation Rate 2 mm/hr (0-20)
== END | disposition home or self-care (01) ==
LOC: LAB 06:50
PROVIDERS: ATTEND Internal Medicine
DX: L03.114 Cellulitis of left upper limb (principal)
CPT/HCPCS: 36415; 80048; 85652

== ENCOUNTER 2024-04-01 08:33 | Inpatient (IN) | payer MEDICARE ==
[~2024-04-01] VITALS: Ht 167.6 cm; Wt 51.4 kg
[2024-04-01 10:30] VITALS: PULSE 107; RESP 18; O2SAT 95
[2024-04-01 11:41] LABS: Anion Gap 6 (5-15); Carbon Dioxide 27 mmol/L (20-30); Chloride 106 mmol/L (98-107); Potassium 3.9 mmol/L (3.5-5.1); Sodium 139 mmol/L (136-145)
[2024-04-01 11:42] LABS: Calcium 9.8 mg/dL (8.7-10.4)
[2024-04-01 11:46] LABS: Glucose 95 mg/dL (74-106)
[2024-04-01 11:47] LABS: BUN/Creatinine Ratio 13.7 (10.0-20.0); Blood Urea Nitrogen 10 mg/dL (9-23)
[2024-04-01 11:54] LABS: INR 1.11 (0.9-1.15); Prothrombin Time 11.7 sec (9.3-11.8)
[2024-04-01] MEDS: ceFAZolin 2 GM/D5W50ml 50 ML IV ONE (11:58)
[2024-04-01 12:01] LABS: Basophils # (auto) 0.1 10 ^3/uL (0-0.2); Basophils % (auto) 1.4 % (0.0-2.0); Eosinophils # (auto) 0.2 10 ^3/uL (0-0.8); Hematocrit 42.9 % (36.0-46.0); Hemoglobin 14.7 g/dL (12.2-16.2); Lymphocytes # (auto) 1.6 10 ^3/uL (0.4-5.4); Lymphocytes % (auto) 29.1 % (10.0-50.0); Mean Corpuscular Hemoglobin 30.3 pg (28.0-32.0); Mean Corpuscular Hgb Conc. 34.2 g/dL (32.0-36.0); Mean Corpuscular Volume 88.7 fL (80.0-100.0); Monocytes # (auto) 0.6 10 ^3/uL (0-1.3); Monocytes % (auto) 10.5 % (0.0-12.0); Nucleated Red Blood Cells % 0.2 %; Platelet Count (auto) 168 10^3/uL (140-450); Red Blood Cells 4.84 10^6/uL (4.0-5.20); Red Cell Distribution Width 14.8 % (11.8-14.3); White Blood Cell 5.4 10^3/uL (4.4-10.8)
[2024-04-01] MEDS ORDERED: MORPHINE SULFATE INJ 2 MG/ml SYRG IV PRN (15:45)
[2024-04-01] MEDS ORDERED: ONDANSETRON HCL 4 MG/2 ML VIAL IV PRN (15:45)
[2024-04-01] MEDS ORDERED: DOCUSATE SOD 100 MG CAP PO PRN (15:45)
[2024-04-01] MEDS ORDERED: NITROGLYCERIN 0.4 MG SL TAB SL PRN (15:45)
[2024-04-01] MEDS: CLINDAMYCIN 300MG IV 50 ML IV ONE (16:55)
[2024-04-01] MEDS: SODIUM CHLORIDE 0.9% 1,000 ML IV SCH (16:56)
[2024-04-01 21:29] VITALS: BP 164/82; PULSE 79; RESP 18; TEMP 98.3; O2SAT 94
[2024-04-01] MEDS ORDERED: CLINDAMYCIN 300MG IV 50 ML IV SCH (22:00)
[2024-04-01] MEDS ORDERED: MECL12.595 PO (22:40)
[2024-04-02 05:00] VITALS: BP 164/82; PULSE 79; RESP 18; TEMP 98.3; O2SAT 94
[2024-04-02 06:46] LABS: Alanine Aminotransferase 11 U/L (7-40); Alkaline Phosphatase 60 U/L (46-116); Anion Gap 7 (5-15); Aspartate Aminotransferase 23 U/L (13-40); BUN/Creatinine Ratio 19.1 (10.0-20.0); Blood Urea Nitrogen 13 mg/dL (9-23); Calcium 9.6 mg/dL (8.7-10.4); Carbon Dioxide 27 mmol/L (20-30); Chloride 106 mmol/L (98-107); Glucose 83 mg/dL (74-106); Potassium 3.6 mmol/L (3.5-5.1); Sodium 140 mmol/L (136-145)
[2024-04-02 06:47] LABS: Total Protein 6.5 g/dL (5.7-8.2)
[2024-04-02 07:41] LABS: Basophils # (auto) 0.1 10 ^3/uL (0-0.2); Basophils % (auto) 0.9 % (0.0-2.0); Eosinophils # (auto) 0.3 10 ^3/uL (0-0.8); Eosinophils % (auto) 5.1 % (0.0-7.0); Hematocrit 42.5 % (36.0-46.0); Hemoglobin 14.6 g/dL (12.2-16.2); Lymphocytes # (auto) 1.7 10 ^3/uL (0.4-5.4); Lymphocytes % (auto) 29.9 % (10.0-50.0); Mean Corpuscular Hemoglobin 30.4 pg (28.0-32.0); Mean Corpuscular Hgb Conc. 34.4 g/dL (32.0-36.0); Mean Corpuscular Volume 88.5 fL (80.0-100.0); Monocytes # (auto) 0.7 10 ^3/uL (0-1.3); Monocytes % (auto) 12.1 % (0.0-12.0); Neutrophils # (auto) 2.9 10 ^3/uL (1.6-8.6); Nucleated Red Blood Cells % 0.9 %; Platelet Count (auto) 160 10^3/uL (140-450); Red Cell Distribution Width 14.6 % (11.8-14.3); White Blood Cell 5.6 10^3/uL (4.4-10.8)
[2024-04-02] MEDS: CLINDAMYCIN HCL 150 MG CAP PO SCH (08:00)
[2024-04-02 09:00] VITALS: BP 153/67; PULSE 91; RESP 16; TEMP 98.2; O2SAT 96
[2024-04-02] MEDS: ASPirin 81 mg TAB PO SCH (10:00)
[2024-04-02] MEDS: CALAMINE TOPical LOTION180 ML TOP PRN (10:48)
[2024-04-02 12:58] VITALS: BP 151/84; PULSE 59; RESP 16; TEMP 98.4; O2SAT 95
[2024-04-02 17:00] VITALS: BP 140/75; PULSE 87; RESP 16; TEMP 97.8; O2SAT 94
[2024-04-02 21:00] VITALS: BP 140/77; PULSE 77; RESP 20; TEMP 98.1; O2SAT 95
[2024-04-03 01:00] VITALS: BP 117/67; PULSE 74; RESP 18; TEMP 97.3; O2SAT 92
[2024-04-03 05:00] VITALS: BP 131/74; PULSE 63; RESP 18; TEMP 97.6; O2SAT 82
[2024-04-03 08:17] VITALS: BP 138/73; PULSE 92; RESP 18; TEMP 98.5; TEMP 98.6; O2SAT 91
[2024-04-03] MEDS: METOPROLOL TARTRATE 25 MG TAB PO SCH (10:00)
[2024-04-03 11:40] VITALS: BP 143/74; PULSE 80; RESP 20; TEMP 98.9; O2SAT 91
[2024-04-03 16:33] VITALS: BP 147/73; PULSE 90; RESP 17; TEMP 98.3; O2SAT 93
[2024-04-03 21:00] VITALS: BP 121/57; PULSE 75; RESP 16; TEMP 97.8; O2SAT 93
[2024-04-03] MEDS: PIPERACILLIN-TAZOB 3.375GM 100 ML IV SCH (21:43)
[2024-04-04 01:00] VITALS: BP 116/49; PULSE 72; RESP 15; O2SAT 93
[2024-04-04 05:00] VITALS: BP 147/71; PULSE 69; RESP 17; TEMP 97.8; O2SAT 94
[2024-04-04] MEDS ORDERED: MECLIZINE HCL 25 MG TAB PO PRN (12:00)
[2024-04-04] MEDS: MECLIZINE HCL 25 MG TAB PO ONE (12:17)
[2024-04-04] MEDS ORDERED: LEVO750T40 PO (15:51)
[2024-04-04] MEDS ORDERED: CLIN150C18 PO (15:51)
[2024-04-04 16:36] VITALS: TEMP 36.6
== END 2024-04-04 18:08 | disposition home or self-care (01) | DRG 603 ==
LOC: ER 08:39 → OVERFLOW 16:00 → WEST WING 21:15
PROVIDERS: ADMIT Nurse Practitioner Family; ATTEND Family Medicine
DX: L03.114 Cellulitis of left upper limb (principal); I10 Essential (primary) hypertension; I89.0 Lymphedema, not elsewhere classified; J44.89 Other specified chronic obstructive pulmonary disease; L04.2 Acute lymphadenitis of upper limb; Z82.3 Family history of stroke; Z80.1 Family history of malignant neoplasm of trachea, bronchus and lung; Z85.3 Personal history of malignant neoplasm of breast; Z90.12 Acquired absence of left breast and nipple; Z90.710 Acquired absence of both cervix and uterus; Z82.49 Family history of ischemic heart disease and other diseases of the circulatory system; Z80.0 Family history of malignant neoplasm of digestive organs; R42 Dizziness and giddiness
CPT/HCPCS: 36415; 76881; 80048; 80053; 83605; 85025; 85610; 87081; 93971; 96365; 96367; G0378; J2543; J3490

== ENCOUNTER 2024-04-09 11:00 | Inpatient (IN) | payer MEDICARE ==
[~2024-04-09] VITALS: Ht 167.6 cm; Wt 50.9 kg
[~2024-04-09 11:00] MED LIST changes: -CEPH250C PO; +CLIN150C18 PO; +LEVO750T40 PO; +MECL12.595 PO
[2024-04-09 12:36] LABS: Alanine Aminotransferase 17 U/L (7-40); Albumin 4.8 g/dL (3.2-4.8); Alkaline Phosphatase 70 U/L (46-116); Anion Gap 7 (5-15); Aspartate Aminotransferase 33 U/L (13-40); BUN/Creatinine Ratio 14.8 (10.0-20.0); Blood Urea Nitrogen 13 mg/dL (9-23); Calcium 10.3 mg/dL (8.7-10.4); Carbon Dioxide 25 mmol/L (20-30); Chloride 102 mmol/L (98-107); Glucose 94 mg/dL (74-106); Potassium 3.9 mmol/L (3.5-5.1); Sodium 134 mmol/L (136-145)
[2024-04-09 12:37] LABS: Total Protein 7.9 g/dL (5.7-8.2)
[2024-04-09 12:39] LABS: INR 1.23 (0.9-1.15); Prothrombin Time 12.8 sec (9.3-11.8)
[2024-04-09 12:46] LABS: Basophils # (auto) 0.1 10 ^3/uL (0-0.2); Basophils % (auto) 1.2 % (0.0-2.0); Eosinophils # (auto) 0.1 10 ^3/uL (0-0.8); Eosinophils % (auto) 1.9 % (0.0-7.0); Hematocrit 43.7 % (36.0-46.0); Hemoglobin 15.2 g/dL (12.2-16.2); Lymphocytes # (auto) 1.8 10 ^3/uL (0.4-5.4); Lymphocytes % (auto) 25.9 % (10.0-50.0); Mean Corpuscular Hemoglobin 30.8 pg (28.0-32.0); Mean Corpuscular Hgb Conc. 34.7 g/dL (32.0-36.0); Monocytes # (auto) 0.9 10 ^3/uL (0-1.3); Monocytes % (auto) 13.1 % (0.0-12.0); Neutrophils # (auto) 4.1 10 ^3/uL (1.6-8.6); Neutrophils % (auto) 57.9 % (37.0-80.0); Nucleated Red Blood Cells % 0.2 %; Platelet Count (auto) 189 10^3/uL (140-450); Red Blood Cells 4.91 10^6/uL (4.0-5.20); Red Cell Distribution Width 14.5 % (11.8-14.3)
[2024-04-09] MEDS: VANCOMYCIN 1GM/200ML PREMIX 200 ML IV ONE (14:42)
[2024-04-09] MEDS ORDERED: VANCOMYCIN PER PHARMACY 0 MG IV SCH (17:15)
[2024-04-09] MEDS ORDERED: ONDANSETRON HCL 4 MG/2 ML VIAL IV PRN (17:15)
[2024-04-09] MEDS ORDERED: HYDROcodone-ACET 5/325MG TAB PO PRN (17:15)
[2024-04-09 17:35] VITALS: PULSE 88; RESP 16; O2SAT 97
[2024-04-09 18:10] VITALS: BP 128/63; PULSE 84; RESP 18; TEMP 98.2; O2SAT 94
[2024-04-09 18:31] VITALS: RESP 18; O2SAT 94
[2024-04-09 20:00] VITALS: PULSE 87; RESP 18; O2SAT 98
[2024-04-09 21:00] VITALS: BP 138/60; PULSE 95; RESP 18; TEMP 98.2; O2SAT 91
[2024-04-09] MEDS ORDERED: CLINDAMYCIN 600MG IV 50 ML IV SCH (22:00)
[2024-04-10] VITALS (8 sets, daily range): BP systolic 105–129; BP diastolic 55–66; PULSE 66–103; RESP 14–20; TEMP 97.8–98.6; O2SAT 89–98
[2024-04-10] MEDS ORDERED: DOXY100C4 PO (00:28)
[2024-04-10] MEDS ORDERED: FURO20TA4 PO (00:28)
[2024-04-10 07:20] LABS: Anion Gap 5 (5-15); Carbon Dioxide 27 mmol/L (20-30); Chloride 105 mmol/L (98-107); Potassium 3.5 mmol/L (3.5-5.1); Sodium 137 mmol/L (136-145)
[2024-04-10 07:21] LABS: Calcium 9.1 mg/dL (8.7-10.4)
[2024-04-10 07:26] LABS: BUN/Creatinine Ratio 22.9 (10.0-20.0); Blood Urea Nitrogen 16 mg/dL (9-23); Glucose 83 mg/dL (74-106)
[2024-04-10] MEDS: FUROSEMIDE 20 MG TAB PO SCH (09:30)
[2024-04-10] MEDS: ENOXAPARIN SOD 40 MG/0.4 ML SYRINGE SC SCH (09:31)
[2024-04-10] MEDS: VANCOMYCIN 750mg/150ml 150 ML IV SCH (11:36)
[2024-04-10] MEDS: POTASSIUM CHL 20 Meq TABLET PO ONE ×2 (13:47→13:51)
[2024-04-10] MEDS: cefTRIAXone 2GM/50ML D5W 50 ML IV SCH (15:11)
[2024-04-11] VITALS (8 sets, daily range): BP systolic 103–128; BP diastolic 47–71; PULSE 56–95; RESP 16–18; TEMP 97.5–98; O2SAT 90–97
[2024-04-11] MEDS: ACETAMINOPHEN 325 MG TAB PO PRN (02:46)
[2024-04-11 07:48] LABS: Basophils # (auto) 0.1 10 ^3/uL (0-0.2); Basophils % (auto) 1.3 % (0.0-2.0); Eosinophils # (auto) 0.3 10 ^3/uL (0-0.8); Eosinophils % (auto) 5.6 % (0.0-7.0); Hematocrit 39.1 % (36.0-46.0); Hemoglobin 13.9 g/dL (12.2-16.2); Lymphocytes # (auto) 2.2 10 ^3/uL (0.4-5.4); Lymphocytes % (auto) 36.7 % (10.0-50.0); Mean Corpuscular Hemoglobin 31.5 pg (28.0-32.0); Mean Corpuscular Hgb Conc. 35.5 g/dL (32.0-36.0); Mean Corpuscular Volume 88.6 fL (80.0-100.0); Monocytes # (auto) 0.7 10 ^3/uL (0-1.3); Monocytes % (auto) 12.5 % (0.0-12.0); Neutrophils # (auto) 2.6 10 ^3/uL (1.6-8.6); Neutrophils % (auto) 43.9 % (37.0-80.0); Nucleated Red Blood Cells % 0.1 %; Platelet Count (auto) 167 10^3/uL (140-450); Red Blood Cells 4.41 10^6/uL (4.0-5.20); Red Cell Distribution Width 14.9 % (11.8-14.3); White Blood Cell 5.9 10^3/uL (4.4-10.8)
[2024-04-11 08:06] LABS: Alanine Aminotransferase 12 U/L (7-40); Alkaline Phosphatase 48 U/L (46-116); Anion Gap 7 (5-15); Aspartate Aminotransferase 22 U/L (13-40); BUN/Creatinine Ratio 22.6 (10.0-20.0); Blood Urea Nitrogen 19 mg/dL (9-23); Calcium 9.5 mg/dL (8.7-10.4); Carbon Dioxide 26 mmol/L (20-30); Chloride 105 mmol/L (98-107); Glucose 83 mg/dL (74-106); Magnesium 2.1 mg/dL (1.6-2.6); Potassium 4.1 mmol/L (3.5-5.1); Sodium 138 mmol/L (136-145)
[2024-04-11 08:07] LABS: Bilirubin, Total 0.6 mg/dL (0.2-1.0); Total Protein 5.9 g/dL (5.7-8.2)
[2024-04-11 08:12] LABS: Albumin 3.6 g/dL (3.2-4.8)
[2024-04-12] VITALS (8 sets, daily range): BP systolic 113–137; BP diastolic 48–74; PULSE 18–91; RESP 16–97; TEMP 78–98.3; O2SAT 93–97
[2024-04-12 06:27] LABS: Basophils # (auto) 0.1 10 ^3/uL (0-0.2); Eosinophils # (auto) 0.3 10 ^3/uL (0-0.8); Eosinophils % (auto) 6.2 % (0.0-7.0); Hematocrit 39.2 % (36.0-46.0); Hemoglobin 13.7 g/dL (12.2-16.2); Lymphocytes # (auto) 1.6 10 ^3/uL (0.4-5.4); Lymphocytes % (auto) 30.1 % (10.0-50.0); Mean Corpuscular Hemoglobin 30.7 pg (28.0-32.0); Mean Corpuscular Volume 87.6 fL (80.0-100.0); Monocytes # (auto) 0.7 10 ^3/uL (0-1.3); Monocytes % (auto) 12.2 % (0.0-12.0); Neutrophils # (auto) 2.7 10 ^3/uL (1.6-8.6); Neutrophils % (auto) 49.5 % (37.0-80.0); Nucleated Red Blood Cells % 0.1 %; Platelet Count (auto) 153 10^3/uL (140-450); Red Blood Cells 4.47 10^6/uL (4.0-5.20); Red Cell Distribution Width 14.4 % (11.8-14.3); White Blood Cell 5.4 10^3/uL (4.4-10.8)
[2024-04-12 06:35] LABS: Anion Gap 6 (5-15); Calcium 9.3 mg/dL (8.7-10.4); Carbon Dioxide 26 mmol/L (20-30); Chloride 106 mmol/L (98-107); Potassium 4.1 mmol/L (3.5-5.1); Sodium 138 mmol/L (136-145)
[2024-04-12 06:40] LABS: Glucose 83 mg/dL (74-106)
[2024-04-12 06:41] LABS: BUN/Creatinine Ratio 30.3 (10.0-20.0); Blood Urea Nitrogen 20 mg/dL (9-23); Magnesium 2.1 mg/dL (1.6-2.6)
[2024-04-12] MEDS: VANCOMYCIN 750mg/150ml 150 ML IV SCH (12:30)
[2024-04-13] VITALS (8 sets, daily range): BP systolic 110–136; BP diastolic 58–78; PULSE 62–97; RESP 15–18; TEMP 97.2–98; O2SAT 93–96
[2024-04-13] MEDS: MECLIZINE HCL 25 MG TAB PO PRN (09:42)
[2024-04-13 19:12] LABS: Urine Bacteria None Seen /hpf (None Seen)
[2024-04-13 19:27] LABS: Urine Blood Negative /uL (Negative); Urine Clarity Clear (Clear); Urine Color Light-Yellow (Yellow); Urine Protein, UAD Negative (Negative); Urine Specific Gravity 1.014 (1.001-1.035); Urine Urobilinogen Normal (Negative); Urine WBC <1 /hpf (0 - 5)
[2024-04-14] VITALS (8 sets, daily range): BP systolic 98–129; BP diastolic 57–67; PULSE 65–91; RESP 16–94; TEMP 97.7–98.1; O2SAT 93–97
[2024-04-14] MEDS: ceFAZolin 1GM/50ML 50 ML IV SCH (16:47)
[2024-04-15 05:00] VITALS: BP 111/58; PULSE 61; RESP 17; TEMP 97.5; O2SAT 93
[2024-04-15 08:00] VITALS: PULSE 54; RESP 18; O2SAT 94
[2024-04-15 09:00] VITALS: BP 125/71; PULSE 54; RESP 18; TEMP 97.9; O2SAT 94
[2024-04-15 11:40] VITALS: BP 115/50; PULSE 60; RESP 16; TEMP 97.9; O2SAT 97
[2024-04-15 17:00] VITALS: BP 133/73; PULSE 87; RESP 16; TEMP 97.9; O2SAT 94
[2024-04-15 20:00] VITALS: BP 134/71; PULSE 54; PULSE 68; RESP 20; TEMP 98.2; O2SAT 100; O2SAT 94
[2024-04-16] VITALS (7 sets, daily range): BP systolic 104–149; BP diastolic 44–67; PULSE 55–95; RESP 18–20; TEMP 97.4–98.2; O2SAT 90–96
[2024-04-16 06:10] LABS: Basophils # (auto) 0.1 10 ^3/uL (0-0.2); Basophils % (auto) 1.9 % (0.0-2.0); Eosinophils # (auto) 0.3 10 ^3/uL (0-0.8); Eosinophils % (auto) 5.5 % (0.0-7.0); Hemoglobin 14.1 g/dL (12.2-16.2); Lymphocytes # (auto) 1.5 10 ^3/uL (0.4-5.4); Lymphocytes % (auto) 26.9 % (10.0-50.0); Mean Corpuscular Hemoglobin 30.6 pg (28.0-32.0); Mean Corpuscular Hgb Conc. 34.5 g/dL (32.0-36.0); Mean Corpuscular Volume 88.8 fL (80.0-100.0); Monocytes # (auto) 0.7 10 ^3/uL (0-1.3); Monocytes % (auto) 13.3 % (0.0-12.0); Neutrophils # (auto) 2.9 10 ^3/uL (1.6-8.6); Neutrophils % (auto) 52.4 % (37.0-80.0); Platelet Count (auto) 155 10^3/uL (140-450); Red Blood Cells 4.61 10^6/uL (4.0-5.20); Red Cell Distribution Width 14.8 % (11.8-14.3); White Blood Cell 5.5 10^3/uL (4.4-10.8)
[2024-04-16 06:21] LABS: Chloride 100 mmol/L (98-107); Potassium 3.8 mmol/L (3.5-5.1); Sodium 137 mmol/L (136-145)
[2024-04-16 06:22] LABS: Anion Gap 6 (5-15); Carbon Dioxide 31 mmol/L (20-31)
[2024-04-16 06:23] LABS: Calcium 9.8 mg/dL (8.7-10.4)
[2024-04-16 06:27] LABS: BUN/Creatinine Ratio 23.1 (10.0-20.0); Blood Urea Nitrogen 15 mg/dL (9-23); Glucose 87 mg/dL (74-106)
[2024-04-16] MEDS: IOHEXOL 300 MG/ML 100ML BOTTLE IJ ONE ×2 (08:34→11:51)
[2024-04-17] VITALS (7 sets, daily range): BP systolic 110–141; BP diastolic 61–88; PULSE 61–72; RESP 12–20; TEMP 96.7–98; O2SAT 90–96
[2024-04-18 05:00] VITALS: BP 112/51; PULSE 57; RESP 18; TEMP 98.7; O2SAT 93
[2024-04-18 08:00] VITALS: PULSE 62; O2SAT 95
[2024-04-18 09:00] VITALS: BP 146/71; PULSE 64; RESP 17; TEMP 98.2; O2SAT 98
[2024-04-18 13:00] VITALS: BP 179/76; PULSE 86; RESP 16; TEMP 97.8; O2SAT 94
[2024-04-18 17:00] VITALS: BP 156/70; PULSE 70; RESP 16; TEMP 97.8; O2SAT 95
[2024-04-18 21:00] VITALS: BP 130/99; PULSE 114; RESP 20; TEMP 97.9; O2SAT 92
[2024-04-19] VITALS (9 sets, daily range): BP systolic 94–146; BP diastolic 40–77; PULSE 68–102; RESP 16–18; TEMP 97.3–98.2; O2SAT 93–97
[2024-04-20] VITALS (8 sets, daily range): BP systolic 107–133; BP diastolic 56–73; PULSE 60–94; RESP 16–19; TEMP 97.1–98.4; O2SAT 91–97
[2024-04-20 03:34] LABS: Basophils # (auto) 0.1 10 ^3/uL (0-0.2); Basophils % (auto) 2.4 % (0.0-2.0); Eosinophils # (auto) 0.4 10 ^3/uL (0-0.8); Eosinophils % (auto) 7.5 % (0.0-7.0); Hemoglobin 12.9 g/dL (12.2-16.2); Lymphocytes # (auto) 2.1 10 ^3/uL (0.4-5.4); Lymphocytes % (auto) 37.4 % (10.0-50.0); Mean Corpuscular Hemoglobin 30.5 pg (28.0-32.0); Mean Corpuscular Hgb Conc. 33.9 g/dL (32.0-36.0); Monocytes # (auto) 0.7 10 ^3/uL (0-1.3); Monocytes % (auto) 11.5 % (0.0-12.0); Neutrophils # (auto) 2.4 10 ^3/uL (1.6-8.6); Neutrophils % (auto) 41.2 % (37.0-80.0); Nucleated Red Blood Cells % 0.1 %; Platelet Count (auto) 161 10^3/uL (140-450); Red Blood Cells 4.22 10^6/uL (4.0-5.20); Red Cell Distribution Width 14.5 % (11.8-14.3); White Blood Cell 5.7 10^3/uL (4.4-10.8)
[2024-04-20 03:46] LABS: Alanine Aminotransferase 10 U/L (7-40); Albumin 3.7 g/dL (3.2-4.8); Alkaline Phosphatase 55 U/L (46-116); Anion Gap 5 (5-15); Aspartate Aminotransferase 30 U/L (13-40); BUN/Creatinine Ratio 22.7 (10.0-20.0); Bilirubin, Total 0.7 mg/dL (0.2-1.0); Blood Urea Nitrogen 15 mg/dL (9-23); Calcium 9.4 mg/dL (8.7-10.4); Carbon Dioxide 27 mmol/L (20-31); Chloride 104 mmol/L (98-107); Glucose 90 mg/dL (74-106); Potassium 4.3 mmol/L (3.5-5.1); Sodium 136 mmol/L (136-145); Total Protein 6.1 g/dL (5.7-8.2)
[2024-04-20 03:54] LABS: INR 1.11 (0.9-1.15); Partial Thromboplastin Time 28.3 SEC (24.5-34.5); Prothrombin Time 11.7 sec (9.3-11.8)
[2024-04-20] MEDS: ceFAZolin 2 GM/D5W100ml 100 ML IV ONE (06:41)
[2024-04-20] MEDS ORDERED: fentaNYL CITRATE 100 MCG/2 ML VL ONE (07:22)
[2024-04-20] MEDS ORDERED: MIDAZOLAM HCL 2MG/2ML 2ml VIAL (1mg/ml) ONE (07:22)
[2024-04-20] MEDS ORDERED: DexAMETHasone SOD PHOS 10MG/1ML VIAL INJ ONE (07:23)
[2024-04-20] MEDS ORDERED: MEPERIDINE HCL (25 MG/ML) 1ML VIAL ONE (07:23)
[2024-04-20] MEDS ORDERED: PROPOFOL 10 MG/ML 20 ML IV ONE (07:23)
[2024-04-20] MEDS: BUPIVACAINE 0.25% INJ 50ML VIAL ONE (07:38)
[2024-04-20] MEDS: LIDOCAINE W/ EPINEPHRINE 1% 20ML VIAL ONE (07:38)
[2024-04-20] MEDS: POVIDONE IODINE 10 % TOPICAL OINT 30GM TOP ONE (08:00)
[2024-04-20] MEDS ORDERED: MORPHINE SULFATE 4 MG/ML SYR/VIAL IV PRN (08:15)
[2024-04-20] MEDS ORDERED: hydrALAZINE HCL 20 MG/ML VL IV PRN (08:15)
[2024-04-20] MEDS: ONDANSETRON HCL 4 MG/2 ML VIAL IV ONE (08:15)
[2024-04-20] MEDS ORDERED: MIDAZOLAM HCL 2MG/2ML 2ml VIAL (1mg/ml) IV PRN (08:15)
[2024-04-20] MEDS ORDERED: HYDROmorphone HCL 2 MG/ML VL/or syr IV PRN (08:15)
[2024-04-21] VITALS (8 sets, daily range): BP systolic 106–126; BP diastolic 38–65; PULSE 62–80; RESP 16–20; TEMP 97.6–99.3; O2SAT 94–97
[2024-04-22 01:00] VITALS: BP 113/35; PULSE 63; RESP 16; TEMP 97.5; O2SAT 94
[2024-04-22 05:00] VITALS: BP 129/56; PULSE 63; RESP 18; TEMP 98.4; O2SAT 96
[2024-04-22 08:29] VITALS: BP 109/66; PULSE 59; RESP 15; TEMP 97.6; O2SAT 95
[2024-04-22 12:21] VITALS: BP 115/62; PULSE 59; RESP 15; TEMP 97.7; O2SAT 94
[2024-04-22] MEDS ORDERED: LETR2.5T6 PO (15:36)
[2024-04-22 16:15] VITALS: BP 125/71; TEMP 36.5
[2024-04-22] MEDS ORDERED: PROPOFOL 10 MG/ML 20 ML IV ONE (16:38)
== END 2024-04-22 16:39 | disposition home or self-care (01) | DRG 602 ==
LOC: ER 11:00 → OVERFLOW 17:11 → WEST WING 18:15
PROVIDERS: ADMIT Nurse Practitioner; ATTEND Internal Medicine
PROC: 0HB5XZX Excision of Chest Skin, External Approach, Diagnostic (ICD-10-PCS; principal; 2024-04-20 07:20)
DX: L03.114 Cellulitis of left upper limb (principal); A41.9 Sepsis, unspecified organism; J18.9 Pneumonia, unspecified organism; J44.1 Chronic obstructive pulmonary disease with (acute) exacerbation; J45.901 Unspecified asthma with (acute) exacerbation; C50.912 Malignant neoplasm of unspecified site of left female breast; I10 Essential (primary) hypertension; I88.9 Nonspecific lymphadenitis, unspecified; F41.9 Anxiety disorder, unspecified; D17.22 Benign lipomatous neoplasm of skin and subcutaneous tissue of left arm; I89.0 Lymphedema, not elsewhere classified; Z79.811 Long term (current) use of aromatase inhibitors; Z90.710 Acquired absence of both cervix and uterus; Z83.3 Family history of diabetes mellitus; Z82.49 Family history of ischemic heart disease and other diseases of the circulatory system; Z80.42 Family history of malignant neoplasm of prostate; Z82.3 Family history of stroke; Z80.1 Family history of malignant neoplasm of trachea, bronchus and lung; Z80.0 Family history of malignant neoplasm of digestive organs; Z80.3 Family history of malignant neoplasm of breast; Z90.12 Acquired absence of left breast and nipple; Z85.3 Personal history of malignant neoplasm of breast; Z88.2 Allergy status to sulfonamides; Z88.7 Allergy status to serum and vaccine; Z88.8 Allergy status to other drugs, medicaments and biological substances; Z79.82 Long term (current) use of aspirin
CPT/HCPCS: 36415; 71260; 76536; 80048; 80053; 80202; 81001; 82565; 83605; 83735; 83880; 84484; 85025; 85610; 85730; 86850; 86900; 86901; 87040; 93005; 93971; 96365; 96366; 97110; 97116; 97163; 97530; G0378; J1100; J2250; J2704; J3490

== ENCOUNTER 2024-06-25 08:54 | Emergency (ER) | payer MEDICARE ==
[~2024-06-25] VITALS: Ht 167.6 cm; Wt 72.5 kg
[~2024-06-25 08:54] MED LIST changes: +DOXY100C4 PO; +FURO20TA4 PO; +LETR2.5T6 PO
[2024-06-25 10:57] VITALS: BP 145/75; PULSE 104; RESP 16; TEMP 98.9; O2SAT 94
--- NOTE | 2024-06-25 11:28 | ED.PDOC ---
Musculoskeletal HPI Comments A 79 YEAR OLD FEMALE PRESENTS TO THE ED WITH COMPLAINT OF LUMP AND LEFT AXILLARY REGION. PATIENT STATES SHE HAS HAD SURGERY ABOUT 3 WEEKS AGO FOR A NODULE REMOVAL AND BEGAN TO EXPERIENCE A SMALL LUMP IN HER LEFT AXILLARY REGION WITH MILD DISCOMFORT SHORTLY AFTER. PATIENT REPORTS SHE HAS HAD THIS LUMP FOR THE PAST 3 WEEKS AND WOULD LIKE IT TO BE EVALUATED. PATIENT DENIES FEVER, CHILLS, SHORTNESS OF BREATH, CHEST PAIN, ABDOMINAL PAIN, NAUSEA, VOMITING, HEADACHE, OR OTHER COMPLAINTS. NO OTHER SYMPTOMS OR MODIFYING FACTORS AT THIS TIME. PATIENT IS ALERT, ORIENTED X 4, AND HAS STEADY GAIT. Chief Complaint: Upper Extremity Time Seen by MD: 09:17 Primary Care Provider: ASHLEY Reviewed Notes: Nurses Notes, Medications, Allergies Allergies: Coded Allergies: Corticosteroids (Verified Allergy, Unknown, 08/04/23) Flu Virus Vaccine (Unverified Allergy, Unknown, 08/04/23) Sulfa Antibiotics (Unverified Allergy, Unknown, 08/04/23) Amlodipine (Unverified Adverse Reaction, Unknown, 08/04/23) Uncoded Allergies: STEROIDS (Allergy, Unknown, 05/04/20) Home Meds Active Scripts Cephalexin Monohydrate (Cephalexin) 500 Mg Tab, 1 TAB PO TID, #30 TAB Prov:REBECCA GONZALES 06/25/24 Letrozole (LETROZOLE) 2.5 Mg Tab, 2.5 MG PO DAILY for 30 Days, #30 TAB 2 Refills Prov:LUCY PIKE MD 04/22/24 Levofloxacin Hemihydrate (LEVOFLOXACIN) 750 Mg Tab, 1 TAB PO DAILY, #14 TAB Prov:CHARLY MERCER DO 04/04/24 Clindamycin Hcl (Clindamycin Hcl) 150 Mg Cap, 300 MG PO Q8H for 14 Days, #42 CAP 0 Refills Prov:CHARLY MERCER DO 04/04/24 Reported Medications Doxycycline Hyclate (Doxycycline Hyclate) 100 Mg Cap, 1 CAP PO BID 04/10/24 Furosemide (Furosemide) 20 Mg Tab, 1 TAB PO DAILY 04/10/24 Meclizine HCl (Meclizine Hydrochloride) 12.5 Mg Tab, 1 TAB PO BIDPRN PRN for DIZZINESS 04/01/24 Metoprolol Tartrate (Metoprolol Tartrate) 25 Mg Tab, 25 MG PO EOD for 30 Days, MG 12/14/19 Aspirin (Asa) 81 Mg Ch, 81 MG PO, TAB.CHEW 12/14/19 Information Source: Patient Mode of Arrival: Ambulatory Location: Left Extremity Location: Other (AXILLA) Timing: Weeks Prehospital treatment: None Severity: Mild Able to Move Extremity: Yes Bear Weight: Fully Pain: Mild Mechanism: No Trauma, Spontaneous Circumstances: Spontaneous Onset of Symptoms: Spontaneous Symptoms: Pain DVT Risk Factors: NONE Last Tetanus: Unknown Associated signs and symptoms: None Past Medical History PAST MEDICAL HISTORY: Asthma, Cancer, COPD, HTN Surgical History: Hysterectomy 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 History Family History Family History: Reviewed,noncontributory to illness Social History Smoker: Non-Smoker Alcohol: Occasionally Drugs: Denies Drug Use Lives In: Home Constitutional: denies: chills, diaphoresis, fatigue, fever, malaise, sweats, weakness, others EENTM: denies: blurred vision, double vision, ear bleeding, ear discharge, ear drainage, ear pain, ear ringing, eye pain, eye redness, hearing loss, mouth pain, mouth swelling, nasal discharge, nose bleeding, nose congestion, nose pain, photophobia, tearing, throat pain, throat swelling, voice changes, others Respiratory: denies: cough, hemoptysis, orthopnea, SOB at rest, shortness of breath, SOB with excertion, stridor, wheezing, others Cardiovascular: denies: chest pain, dizzy spells, diaphoresis, Dyspnea on exertion, edema, irregular heart beat, left arm pain, lightheadedness, palpitations, PND, syncope, others Gastrointestinal: denies: abdomen distended, abdominal pain, blood streaked bowels, constipated, diarrhea, dysphagia, difficulty swallowing, hematemesis, me miladis, nausea, poor appetite, poor fluid intake, rectal bleeding, rectal pain, vomiting, others Genitourinary: denies: abnormal vagina bleeding, burning, dyspareunia, dysuria, flank pain, frequency, hematuria, incontinence, pain, , vagina discharge, urgency, others Neurological: denies: dizziness, fainting, headache, left sided numbness, left sided weakness, numbness, paresthesia, pre-existing deficit, right sided numbness, right sided weakness, seizure, speech problems, tingling, tremors, weakness, others Musculoskeletal: reports: others (LUMP OF LEFT AXILLA); denies: back pain, gout, joint pain, joint swelling, muscle pain, muscle stiffness, neck pain Integumetry: reports: lumps (LEFT AXILLA ); denies: bruises, change in color, change in hair/nails, dryness, laceration, lesions, rash, wounds, others Allergic/Immunocompromised: denies: Difficulty Healing, Frequent Infections, Hives, Itching, others Hematologic/Lymphatic: denies: anemia, blood clots, easy bleeding, easy bruising, swollen glands, others Endocrine: denies: excessive hunger, excessive sweating, excessive thirst, excessive urination, flushing, intolerance to cold, intolerance to heat, unexplained weight gain, unexplained weight loss, others Psychiatric: denies: anxiety, bipolar disorder, depression, hopeless, panic disorder, schizophrenia, sleepless, suicidal, others All Other Systems: Reviewed and Negative Physical Exam General Appearance: No Apparent Distress, Normal HEENT: Normal ENT Inspection, PERRL/EOMI, Pharynx Normal, TMs Normal Neck: Full Range of Motion, Non-Tender, Normal, Normal Inspection Respiratory: Chest Non-Tender, Lungs Clear, No Accessory Muscle Use, No Respiratory Distress, Normal Breath Sounds Cardiovascular: No Edema, No JVD, No Murmur, No Gallop, Normal Peripheral Pulses, Regular Rate/Rhythm Breast Exam: Deferred Gastrointestinal: No Organomegaly, Non Tender, No Pulsatile Mass, Normal Bowel Sounds, Soft Genitalia: Deferred Pelvic: Deferred Rectal: Deferred Extremities: No calf tenderness, Normal capillary refill, Normal inspection, Normal range of motion, No pedal edema, Tender (TENDERNESS ON LEFT AXILLAR, NO REDNESS AND SWELLING, A FEW LYMPH NODE PALPABLE. NO DVT SIGNS.) Musculoskeletal : Location: Left Extremity Location: Other (TENDERNESS ON LEFT AXILLAR, NO REDNESS AND SWELLING, A FEW LYMPH NODE PALPABLE. NO DVT SIGNS. 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 ) Was a procedure done? Was a procedure done?: No Differential Diagnosis EXT Differential Diagnosis: Deep Vein Thrombosis, Strain, Arthritis, Other (AXILLAR LYMPH NODE SWELLING ) X-Ray, Labs, Meds, VS Vital Signs Date Time Temp Pulse Resp B/P (MAP) Pulse Ox O2 Delivery O2 Flow Rate FiO2 06/25/24 10:57 98.9 104 16 145/75 (98) 94 98.9 06/25/24 10:57 104 16 94 Room Air 06/25/24 09:10 98.4 104 16 145/75 (98) 94 Exam: US LEFT UPPER EXT Date: 06/25/2024 10:57 AM Clinical History: Left lower extremity edema Comparison: US LT UPPER DVT on DOS: 04/09/24, US LEFT UPPER EXT on DOS: 04/04/24, US LT UPPER DVT on DOS: 04/04/24, US LEFT UPPER EXT on DOS: 04/01/24, US LT UPPER DVT on DOS: 04/01/24 Technique: Targeted sonographic evaluation of the soft tissues of the left axilla. was obtained utilizing grayscale and color Doppler imaging. Findings: There are multiple round lymph nodes in the left axilla measuring up to 0.8 cm. Small fluid collection in the superficial soft tissues in the left axilla measuring 0.9 cm. IMPRESSION: Multiple round lymph nodes in the left axilla are indeterminate. Further evaluation with PET-CT is recommended. ATED BY: HERMAN VIDES MD DICTATED DATE/TIME: 06/25/24 1226 SIGNED BY: HERMAN VIDES MD SIGNED DATE/TIME: 06/25/24 1226 CC: X-Ray, Labs, Meds, VS Comment EXTERNAL NOTES: NONE LABS ORDERED: NONE REVIEWED AND INTERPRETED RESULTS: NONE IMAGING ORDERED: US UPPER EXTREMITY LT INDEPENDENT HISTORIANS: NONE TREATMENTS ORDERED: NONE PATIENT'S CASE AND RESULTS HAVE BEEN DISCUSSED WITH THE ED ATTENDING PHYSICIAN AND THEY AGREE WITH MY PLAN OF CARE. I HAVE DISCUSSED IMAGING RESULTS WITH THE PATIENT AND HAVE INSTRUCTED THEM TO FOLLOW UP WITH THEIR PCP IN 1-2 DAYS. THE PATIENT FULLY UNDERSTANDS THEIR RESULTS AND ARE AWARE THEY NEED TO FOLLOW UP WITH THEIR PCP FOR FURTHER EVALUATION IF THEIR SYMPTOMS PERSIST. Images Reviewed?: Images reviewed and evaluated by me Time of 1ST Reevaluation: 13:00 Reevaluation 1ST: Improved Patient Education/Counseling: Diagnosis, Treatment, Need For Follow Up Family Education/Counseling: Diagnosis, Treatment, Need For Follow Up Medical Screening: No EMC Exist At This Time Departure 1 Departure Time of Disposition: 13:00 Impression: Primary Impression: Axillary lymphadenopathy Disposition: HOME / SELF CARE / HOMELESS Condition: Stable Additional Instructions: FOLLOW-UP WITH PCP IN 1 TO 2 DAYS. TAKE MEDICATIONS PRESCRIBED. RETURN TO ED FOR ANY NEW OR WORSENING SYMPTOMS. e-Prescriptions Cephalexin Monohydrate (Cephalexin) 500 Mg Tab 1 TAB PO TID, #30 TAB Prov: REBECCA GONZALES 06/25/24 Discharged With: Self, Relative Critical Care Note Critical Care Time?: No Stability Stability form required: No I personally scribed for REBECCA GONZALES ([email or web address]) on 06/25/24 at 11:28. Electronically submitted by Ricky Sandoval ([email or web address]). I personally scribed for REBECCA GONZALES ([email or web address]) on 06/25/24 at 12:35. Electronically submitted by Ricky Sandoval ([email or web address]). REBECCA GONZALES Jun 25, 2024 11:28
--- NOTE | 2024-06-25 12:27 | DVH ---
Exam: US LEFT UPPER EXT Date: 06/25/2024 10:57 AM Clinical History: Left lower extremity edema Comparison: US LT UPPER DVT on DOS: 04/09/24, US LEFT UPPER EXT on DOS: 04/04/24, US LT UPPER DVT on DO S: 04/04/24, US LEFT UPPER EXT on DOS: 04/01/24, US LT UPPER DVT on DOS: 04/01/24 Technique: Targeted sonographic evaluation of the soft tissues of the left axilla. was obtained utilizing graysc hunter and color Doppler imaging. Findings: There are multiple round lymph nodes in the left axilla measuring up to 0.8 cm. Small fluid collectio n in the superficial soft tissues in the left axilla measuring 0.9 cm. IMPRESSION: Multiple round lymph nodes in the left axilla are indeterminate. Further evaluation with PET-CT is r ecommended.
[2024-06-25] MEDS ORDERED: CEPH500T PO (12:49)
== END 2024-06-25 12:54 | disposition home or self-care (01) ==
LOC: ER 08:54
DX: R59.0 Localized enlarged lymph nodes (principal); Z88.8 Allergy status to other drugs, medicaments and biological substances; Z88.2 Allergy status to sulfonamides; Z79.84 Long term (current) use of oral hypoglycemic drugs; Z79.899 Other long term (current) drug therapy
CPT/HCPCS: 76881

== ENCOUNTER → 2024-06-29 | Outpatient (CLI) | payer MEDICARE ==
[~2024-06-29] MED LIST changes: +CEPH500T PO
[2024-06-29 10:37] LABS: Basophils # (auto) 0.1 10 ^3/uL (0-0.2); Basophils % (auto) 1.1 % (0.0-2.0); Eosinophils # (auto) 0.2 10 ^3/uL (0-0.8); Eosinophils % (auto) 2.8 % (0.0-7.0); Hematocrit 44.7 % (36.0-46.0); Hemoglobin 15.2 g/dL (12.2-16.2); Lymphocytes # (auto) 1.9 10 ^3/uL (0.4-5.4); Lymphocytes % (auto) 28.6 % (10.0-50.0); Mean Corpuscular Hemoglobin 30.2 pg (28.0-32.0); Mean Corpuscular Volume 88.8 fL (80.0-100.0); Monocytes # (auto) 0.9 10 ^3/uL (0-1.3); Monocytes % (auto) 13.1 % (0.0-12.0); Neutrophils # (auto) 3.7 10 ^3/uL (1.6-8.6); Neutrophils % (auto) 54.4 % (37.0-80.0); Nucleated Red Blood Cells % 0.1 %; Platelet Count (auto) 177 10^3/uL (140-450); Red Blood Cells 5.03 10^6/uL (4.0-5.20); White Blood Cell 6.7 10^3/uL (4.4-10.8)
[2024-06-29 11:00] LABS: Alanine Aminotransferase 19 U/L (7-40); Albumin 4.7 g/dL (3.2-4.8); Alkaline Phosphatase 95 U/L (46-116); Anion Gap 6 (5-15); Aspartate Aminotransferase 29 U/L (13-40); BUN/Creatinine Ratio 20.5 (10.0-20.0); Bilirubin, Total 0.7 mg/dL (0.2-1.0); Blood Urea Nitrogen 17 mg/dL (9-23); Chloride 99 mmol/L (98-107); Glucose 93 mg/dL (74-106); Potassium 3.6 mmol/L (3.5-5.1); Sodium 138 mmol/L (136-145); Total Protein 7.7 g/dL (5.7-8.2)
[2024-06-29 11:04] LABS: Calcium 10.7 mg/dL (8.7-10.4); Carbon Dioxide 33 mmol/L (20-31)
== END | disposition home or self-care (01) ==
LOC: LAB 10:12
PROVIDERS: ATTEND Internal Medicine
DX: C50.912 Malignant neoplasm of unspecified site of left female breast (principal)
CPT/HCPCS: 36415; 80053; 83615; 85025; 86300

== ENCOUNTER → 2024-08-03 | Outpatient (CLI) | payer MEDICARE ==
[2024-08-03 10:29] LABS: Basophils # (auto) 0.1 10 ^3/uL (0-0.2); Eosinophils # (auto) 0.2 10 ^3/uL (0-0.8); Eosinophils % (auto) 3.6 % (0.0-7.0); Hematocrit 46.2 % (36.0-46.0); Hemoglobin 15.5 g/dL (12.2-16.2); Lymphocytes # (auto) 1.6 10 ^3/uL (0.4-5.4); Lymphocytes % (auto) 28.4 % (10.0-50.0); Mean Corpuscular Hgb Conc. 33.6 g/dL (32.0-36.0); Mean Corpuscular Volume 89.2 fL (80.0-100.0); Monocytes # (auto) 0.9 10 ^3/uL (0-1.3); Monocytes % (auto) 16.1 % (0.0-12.0); Neutrophils # (auto) 2.9 10 ^3/uL (1.6-8.6); Neutrophils % (auto) 49.9 % (37.0-80.0); Nucleated Red Blood Cells % 0.1 %; Platelet Count (auto) 197 10^3/uL (140-450); Red Blood Cells 5.17 10^6/uL (4.0-5.20); Red Cell Distribution Width 14.6 % (11.8-14.3); White Blood Cell 5.8 10^3/uL (4.4-10.8)
[2024-08-03 10:53] LABS: Alanine Aminotransferase 20 U/L (7-40); Albumin 4.6 g/dL (3.2-4.8); Alkaline Phosphatase 84 U/L (46-116); Anion Gap 5 (5-15); Aspartate Aminotransferase 31 U/L (13-40); BUN/Creatinine Ratio 14.6 (10.0-20.0); Bilirubin, Total 0.7 mg/dL (0.2-1.0); Blood Urea Nitrogen 12 mg/dL (9-23); Chloride 102 mmol/L (98-107); Glucose 84 mg/dL (74-106); Potassium 4.2 mmol/L (3.5-5.1); Sodium 139 mmol/L (136-145); Total Protein 7.5 g/dL (5.7-8.2)
[2024-08-03 10:54] LABS: Calcium 10.5 mg/dL (8.7-10.4); Carbon Dioxide 32 mmol/L (20-31)
== END | disposition home or self-care (01) ==
LOC: LAB 09:50
PROVIDERS: ATTEND Internal Medicine
DX: C50.812 Malignant neoplasm of overlapping sites of left female breast (principal); C50.912 Malignant neoplasm of unspecified site of left female breast
CPT/HCPCS: 36415; 80053; 83615; 85025; 86300

== ENCOUNTER 2025-02-25 08:46 | Emergency (ER) | payer MEDICARE ==
[~2025-02-25] VITALS: Ht 167.6 cm; Wt 49.6 kg
--- NOTE | 2025-02-25 10:11 | ED.PDOC ---
History of Present Illness HPI Comments 80 year old female presents to the ED with a chief complaint of hypertension onset 2 days. Patient states she has been experiencing high blood pressure as well as dizziness for the past 2 days, is complaint with medication. Upon ED arrival, BP was 184/118. PMHx HTN, COPD, asthma, Cancer. Denies headache, nena sea, vomiting, diarrhea, chest pain, abdominal pain, fever, chills, cough, congestion, dysuria, hematuria, shortness of breath. No other symptoms or modifying factors present at this time. Chief Complaint: High Blood Pressure Time Seen by MD: 09:50 Primary Care Provider: ASHLEY Reviewed Notes: Medications, Allergies Allergies: Coded Allergies: Corticosteroids (Verified Allergy, Unknown, 08/04/23) Flu Virus Vaccine (Unverified Allergy, Unknown, 08/04/23) Sulfa Antibiotics (Unverified Allergy, Unknown, 08/04/23) Amlodipine (Unverified Adverse Reaction, Unknown, 08/04/23) Uncoded Allergies: STEROIDS (Allergy, Unknown, 05/04/20) Home Meds Active Scripts Cephalexin Monohydrate (Cephalexin) 500 Mg Tab, 1 TAB PO TID, #30 TAB Prov:REBECCA GONZALES 06/25/24 Letrozole (LETROZOLE) 2.5 Mg Tab, 2.5 MG PO DAILY for 30 Days, #30 TAB 2 Refills Prov:LUCY PIKE MD 04/22/24 Levofloxacin Hemihydrate (LEVOFLOXACIN) 750 Mg Tab, 1 TAB PO DAILY, #14 TAB Prov:CHARLY MERCER DO 04/04/24 Clindamycin Hcl (Clindamycin Hcl) 150 Mg Cap, 300 MG PO Q8H for 14 Days, #42 CAP 0 Refills Prov:CHARLY MERCER DO 04/04/24 Reported Medications Doxycycline Hyclate (Doxycycline Hyclate) 100 Mg Cap, 1 CAP PO BID 04/10/24 Furosemide (Furosemide) 20 Mg Tab, 1 TAB PO DAILY 04/10/24 Meclizine HCl (Meclizine Hydrochloride) 12.5 Mg Tab, 1 TAB PO BIDPRN PRN for DIZZINESS 04/01/24 Metoprolol Tartrate (Metoprolol Tartrate) 25 Mg Tab, 25 MG PO EOD for 30 Days, MG 12/14/19 Aspirin (Asa) 81 Mg Ch, 81 MG PO, TAB.CHEW 12/14/19 Information Source: Patient Mode of Arrival: Ambulatory Severity: Moderate Timing: Days Duration: Since onset Prehospital treatment: None Past Medical History PAST MEDICAL HISTORY: Asthma, Cancer, COPD, HTN Surgical History: Hysterectomy 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 History Family History Family History: Reviewed,noncontributory to illness Social History Smoker: Non-Smoker Alcohol: Occasionally Drugs: Denies Drug Use Lives In: Home Constitutional: denies: chills, diaphoresis, fatigue, fever, malaise, sweats, weakness, others EENTM: denies: blurred vision, double vision, ear bleeding, ear discharge, ear drainage, ear pain, ear ringing, eye pain, eye redness, hearing loss, mouth pain, mouth swelling, nasal discharge, nose bleeding, nose congestion, nose pain, photophobia, tearing, throat pain, throat swelling, voice changes, others Respiratory: denies: cough, hemoptysis, orthopnea, SOB at rest, shortness of breath, SOB with excertion, stridor, wheezing, others Cardiovascular: reports: others (hypertension); denies: chest pain, dizzy spells, diaphoresis, Dyspnea on exertion, edema, irregular heart beat, left arm pain, lightheadedness, palpitations, PND, syncope Gastrointestinal: denies: abdomen distended, abdominal pain, blood streaked b owels, constipated, diarrhea, dysphagia, difficulty swallowing, hematemesis, melena, nausea, poor appetite, poor fluid intake, rectal bleeding, rectal pain, vomiting, others Genitourinary: denies: abnormal vagina bleeding, burning, dyspareunia, dysuria, flank pain, frequency, hematuria, incontinence, pain, , vagina discharge, urgency, others Neurological: reports: dizziness; denies: fainting, headache, left sided numbness, left sided weakness, numbness, paresthesia, pre-existing deficit, right sided numbness, right sided weakness, seizure, speech problems, tingling, tremors, weakness, others Musculoskeletal: denies: back pain, gout, joint pain, joint swelling, muscle pain, muscle stiffness, neck pain, others Integumetry: denies: bruises, change in color, change in hair/nails, dryness, laceration, lesions, lumps, rash, wounds, others Allergic/Immunocompromised: denies: Difficulty Healing, Frequent Infections, Hives, Itching, others Hematologic/Lymphatic: denies: anemia, blood clots, easy bleeding, easy bruising, swollen glands, others Endocrine: denies: excessive hunger, excessive sweating, excessive thirst, excessive urination, flushing, intolerance to cold, intolerance to heat, unexplained weight gain, unexplained weight loss, others Psychiatric: denies: anxiety, bipolar disorder, depression, hopeless, panic disorder, schizophrenia, sleepless, suicidal, others All Other Systems: Reviewed and Negative Physical Exam General Appearance: Moderate Distress, Normal HEENT: Normal ENT Inspection, Pharynx Normal, TMs Normal Neck: Full Range of Motion, Non-Tender, Normal, Normal Inspection Respiratory: Chest Non-Tender, Lungs Clear, No Accessory Muscle Use, No Respiratory Distress, Normal Breath Sounds Cardiovascular: No Edema, No JVD, No Murmur, No Gallop, Normal Peripheral Pulses, Regular Rate/Rhythm Breast Exam: Deferred Gastrointestinal: No Organomegaly, Non Tender, No Pulsatile Mass, Normal Bowel Sounds, Soft Genitalia: Deferred Pelvic: Deferred Rectal: Deferred Extremities: No calf tenderness, Normal capillary refill, Normal inspection, Normal range of motion, Non-tender, No pedal edema Musculoskeletal : Apperance: Normal Neurologic: Alert, decorator hand II-XII nml as Tested, No Motor Deficits, Normal Affect, Normal Mood, No Sensory Deficits Cerebellar Function: Normal Reflexes: Normal Skin: Dry, Normal Color, Warm Peripheral Pulses: 3+ Radial (R), 3+ Radial (L) Lymphatic: No Adenopathy Was a procedure done? Was a procedure done?: No EKG EKG : Pulse Rate (adult): 92 Cardiac Rhythm: NSR Differential Dx Considerations may include: Hypertension Electrolyte imbalance X-Ray, Labs, Meds, VS Vital Signs Date Time Temp Pulse Resp B/P (MAP) Pulse Ox O2 Delivery O2 Flow Rate FiO2 02/25/25 10:39 97.9 97 18 195/111 (139) 96 97.9 02/25/25 10:11 92 02/25/25 09:04 92 02/25/25 08:50 97.9 94 16 184/118 96 97.9 Lab Test 02/25/25 09:41 02/25/25 09:12 Range/Units White Blood Count 5.1 4.4-10.8 10^3/uL Red Blood Count 5.04 4.0-5.20 10^6/uL Hemoglobin 15.0 12.2-16.2 g/dL Hematocrit 44.7 36.0-46.0 % Mean Corpuscular Volume 88.7 80.0-100.0 fL Mean Corpuscular Hemoglobin 29.8 28.0-32.0 pg Mean Corpuscular Hemoglobin Concent 33.6 32.0-36.0 g/dL Red Cell Distribution Width 14.4 H 11.8-14.3 % Platelet Count 171 140-450 10^3/uL Mean Platelet Volume 8.2 6.9-10.8 fL Neutrophils (%) (Auto) 47.6 37.0-80.0 % Lymphocytes (%) (Auto) 34.9 10.0-50.0 % Monocytes (%) (Auto) 12.8 H 0.0-12.0 % Eosinophils (%) (Auto) 3.4 0.0-7.0 % Basophils (%) (Auto) 1.3 0.0-2.0 % Neutrophils # (Auto) 2.4 1.6-8.6 10 ^3/uL Lymphocytes # (Auto) 1.8 0.4-5.4 10 ^3/uL Monocytes # (Auto) 0.7 0-1.3 10 ^3/uL Eosinophils # (Auto) 0.2 0-0.8 10 ^3/uL Basophils # (Auto) 0.1 0-0.2 10 ^3/uL Nucleated Red Blood Cells 0.0 % Sodium Level 140 136-145 mmol/L Potassium Level 3.7 3.5-5.1 mmol/L Chloride Level 103 98-107 mmol/L Carbon Dioxide Level 30 20-31 mmol/L Anion Gap 7 5-15 Blood Urea Nitrogen 15 9-23 mg/dL Creatinine 0.86 0.550-1.02 mg/dL Glomerular Filtration Rate Calc 67 >90 mL/min BUN/Creatinine Ratio 17.4 10.0-20.0 Serum Glucose 93 74-106 mg/dL Calcium Level 9.4 8.7-10.4 mg/dL Troponin I High Sensitivity 4 </=34 ng/L Urine Color Pending Urine Clarity Pending Urine pH Pending Urine Specific [place] Pending Urine Protein Pending Urine Ketones Pending Urine Blood Pending Urine Nitrite Pending Urine Bilirubin Pending Urine Urobilinogen Pending Urine Leukocyte Esterase Pending Urine RBC Pending Urine Microscopic WBC Pending Urine Squamous Epithelial Cells Pending Urine Bacteria Pending Urine Glucose Pending Patient alert. Complaining of dizziness pain Blood pressure was elevated on arrival. Was given Norvasc. Possibly will need MRI. Autonomic disorder. WBC within normal limits. Hemoglobin within normal limits. Cardiac marker within normal limits. Explained to the patient. Continue to monitor. Time of 1ST Reevaluation: 10:20 Reevaluation 1ST: Unchanged Patient Education/Counseling: Diagnosis, Treatment, Prognosis Family Education/Counseling: No Family Present SEPSIS Sepsis Screen Date sepsis recognized/suspect: Feb 25, 2025 Time Sepsis recognized/suspect: 852 Recent Procedure: No On Antibiotic Therapy: No Respiratory Rate >20: No Heart Rate >90: Yes Temp<36 C (96.8 F) or >38.3 C: No SBP <90 or MAP <65 mmHG: No New Acute Mental Status Change: No Is the patient on CPAP, BIPAP,: No Physician Orders Electrocardigram (02/25/25 08:52) Urinalysis (02/25/25 09:12) Vital Signs Date Time Temp Pulse Resp B/P (MAP) Pulse Ox O2 Delivery O2 Flow Rate FiO2 02/25/25 10:39 97.9 97 18 195/111 (139) 96 97.9 02/25/25 10:11 92 02/25/25 09:04 92 02/25/25 08:50 97.9 94 16 184/118 96 97.9 Laboratory Tests Test 02/25/25 09:41 White Blood Count 5.1 10^3/uL (4.4-10.8) Departure 1 Departure Time of Disposition: 10:51 Impression: Primary Impression: Hypertensive emergency Additional Impression: Autonomic disorder Disposition: ADMITTED INPATIENT Admit to: Med Surg Condition: Guarded Critical Care Note Critical Care Time?: Yes (90 min-critical care time only) Stability Stability form required: No Heart Score Heart Score: Heart Score Response (Comments) Value History Slightly Suspicious 0 EKG Normal 0 Age >65 2 Risk Factors >3 or Hx ASHD 2 Troponin Normal limit 0 Total 4 I personally scribed for PRIYANKA WADSWORTH MD ([email or web address]) on 02/25/25 at 10:11. Electronically submitted by Raiza Eid ([email or web address]). PRIYANKA WADSWORTH MD Feb 25, 2025 10:11
[2025-02-25 10:13] LABS: Hematocrit 44.7 % (36.0-46.0); Hemoglobin 15.0 g/dL (12.2-16.2); Mean Corpuscular Hemoglobin 29.8 pg (28.0-32.0); Mean Corpuscular Volume 88.7 fL (80.0-100.0); Nucleated Red Blood Cells % 0.0 %
[2025-02-25 10:16] LABS: Chloride 103 mmol/L (98-107); Potassium 3.7 mmol/L (3.5-5.1); Sodium 140 mmol/L (136-145)
[2025-02-25 10:17] LABS: Anion Gap 7 (5-15); Calcium 9.4 mg/dL (8.7-10.4); Carbon Dioxide 30 mmol/L (20-31)
[2025-02-25 10:22] LABS: BUN/Creatinine Ratio 17.4 (10.0-20.0); Blood Urea Nitrogen 15 mg/dL (9-23); Glucose 93 mg/dL (74-106)
[2025-02-25 10:39] VITALS: BP 195/111; PULSE 97; RESP 18; TEMP 97.9; O2SAT 96
--- NOTE | 2025-02-25 11:43 | DVH ---
CLINICAL INFORMATION: Transient ischemic attack. TECHNIQUE: Axial imaging was obtained through the brain without contrast. Coronal and sagittal reform atted images were obtained, reviewed, and stored. Images were reviewed in brain and bone windows. Al l CT scans at this medical facility are performed using dose modulation techniques as appropriate to a performed exam including the following: Automated exposure control was utilized; adjustment of the MA and/or KV according to patient size; and use of iterative reconstruction technique. CTDIvol = 53.9 2 mGy DLP = 953.65 mGy-cm COMPARISON: US SOFT TISSUE NECK on DOS: 04/15/24, CT HEAD WITHOUT CONTRAST on DOS: 12/23/22 FINDINGS: There is no acute intracranial hemorrhage. No mass effect or midline shift. Scattered areas of hypoattenuation are seen in the periventricular and subcortical white matter, which are nonspecif ic but most likely sequelae of small vessel ischemic disease. The ventricles and sulci are within nor mal limits in size for age. Basal cisterns are patent. The calvarium is unremarkable. Paranasal sinu ses and mastoid air cells are clear. IMPRESSION: 1. No CT evidence of acute intracranial abnormality. 2. Nonacute findings as described above.
--- NOTE | 2025-02-28 06:48 | ECG ---
[facility] Test Date: 2025-02-25 Test Time: 09:04:03 Pat Name: GALILEA MCGRAW Department: ED Room: Gender: F Qa Consultant: hanh : [id number] Requested By: PRIYANKA WADSWORTH Order Number: [id number] Reading MD: Jeffry Hardy Measurements Intervals [place] Rate: 92 P: 60 NH: 174 QRS: -14 QRSD: 85 T: 57 QT: 337 QTc: 417 Interpretive Statements Sinus rhythm Ventricular premature complex Biatrial enlargement Left ventricular hypertrophy Electronically Signed On 02-28-2025 18:14:28 PDT by Jeffry Hardy Please click the below link to view image of tracing.
== END 2025-02-25 14:39 | disposition left against medical advice (07) ==
LOC: ER 08:46
DX: I16.1 Hypertensive emergency (principal); G90.9 Disorder of the autonomic nervous system, unspecified; F10.90 Alcohol use, unspecified, uncomplicated; J45.909 Unspecified asthma, uncomplicated; J44.89 Other specified chronic obstructive pulmonary disease; I10 Essential (primary) hypertension; Z79.899 Other long term (current) drug therapy; Z90.710 Acquired absence of both cervix and uterus; Z88.7 Allergy status to serum and vaccine; Z88.2 Allergy status to sulfonamides; Z79.811 Long term (current) use of aromatase inhibitors; Z88.8 Allergy status to other drugs, medicaments and biological substances; Z85.9 Personal history of malignant neoplasm, unspecified
CPT/HCPCS: 36415; 70450; 80048; 82947; 84484; 85025; 93005

== ENCOUNTER 2025-04-17 08:18 | Inpatient (IN) | payer MEDICARE ==
[~2025-04-17] VITALS: Ht 157.5 cm; Wt 47.0 kg
--- NOTE | 2025-04-17 08:38 | ED.PDOC ---
History of Present Illness HPI Comments 80 y/o F, with PMHx of asthm, cancer, COPD, and HTN presents to the ED for CC of hypertension. Patient states, she has been experiencing high blood pressure readings x1 month with associated symptoms of dizziness. Patient reports, that she has been out of her blood pressure medications [id number] and has not taken any medications since, prompting symptoms. Patient denies headache, nausea, vomiting, or blurred vision. No other symptoms or modifying factors are present at this time. Chief Complaint: High Blood Pressure Time Seen by MD: 08:30 Primary Care Provider: ASHLEY Reviewed Notes: Nurses Notes, Medications, Allergies Allergies: Coded Allergies: Corticosteroids (Verified Allergy, Unknown, 08/04/23) Flu Virus Vaccine (Unverified Allergy, Unknown, 08/04/23) Sulfa Antibiotics (Unverified Allergy, Unknown, 08/04/23) Amlodipine (Unverified Adverse Reaction, Unknown, 08/04/23) Uncoded Allergies: STEROIDS (Allergy, Unknown, 05/04/20) Home Meds Active Scripts Cephalexin Monohydrate (Cephalexin) 500 Mg Tab, 1 TAB PO TID, #30 TAB Prov:REBECCA GONZALES 06/25/24 Letrozole (LETROZOLE) 2.5 Mg Tab, 2.5 MG PO DAILY for 30 Days, #30 TAB 2 Refills Prov:LUCY PIKE MD 04/22/24 Levofloxacin Hemihydrate (LEVOFLOXACIN) 750 Mg Tab, 1 TAB PO DAILY, #14 TAB Prov:CHARLY MERCER DO 04/04/24 Clindamycin Hcl (Clindamycin Hcl) 150 Mg Cap, 300 MG PO Q8H for 14 Days, #42 CAP 0 Refills Prov:CHARLY MERCER DO 04/04/24 Reported Medications Doxycycline Hyclate (Doxycycline Hyclate) 100 Mg Cap, 1 CAP PO BID 04/10/24 Furosemide (Furosemide) 20 Mg Tab, 1 TAB PO DAILY 04/10/24 Meclizine HCl (Meclizine Hydrochloride) 12.5 Mg Tab, 1 TAB PO BIDPRN PRN for DIZZINESS 04/01/24 Metoprolol Tartrate (Metoprolol Tartrate) 25 Mg Tab, 25 MG PO EOD for 30 Days, MG 12/14/19 Aspirin (Asa) 81 Mg Ch, 81 MG PO, TAB.CHEW 12/14/19 Information Source: Patient Mode of Arrival: Wheelchair Severity: Moderate Timing: Months Duration: Since onset Prehospital treatment: None Past Medical History PAST MEDICAL HISTORY: Asthma, Cancer, COPD, HTN Surgical History: Hysterectomy SENIOR TREASURY CONSULTANT History: No Pertinent SENIOR TREASURY CONSULTANT History Family History Family History: Reviewed,noncontributory to illness Social History Smoker: Non-Smoker Alcohol: Occasionally Drugs: Denies Drug Use Lives In: Home Constitutional: denies: chills, diaphoresis, fatigue, fever, malaise, sweats, weakness, others EENTM: denies: blurred vision, double vision, ear bleeding, ear discharge, ear drainage, ear pain, ear ringing, eye pain, eye redness, hearing loss, mouth pain, mouth swelling, nasal discharge, nose bleeding, nose congestion, nose pain, photophobia, tearing, throat pain, throat swelling, voice changes, others Respiratory: denies: cough, hemoptysis, orthopnea, SOB at rest, shortness of breath, SOB with excertion, stridor, wheezing, others Cardiovascular: denies: chest pain, dizzy spells, diaphoresis, Dyspnea on exertion, edema, irregular heart beat, left arm pain, lightheadedness, palpitations, PND, syncope, others Gastrointestinal: denies: abdomen distended, abdominal pain, blood streaked bowels, constipated, diarrhea, dysphagia, difficulty swallowing, hematemesis, melena, nausea, poor appetite, poor fluid intake, rectal bleeding, rectal pain, vomiting, others Genitourinary: denies: abnormal vagina bleeding, burning, dyspareunia, dysuria, flank pain, frequency, hematuria, incontinence, pain, , vagina discharge, urgency, others Neurological: reports: dizziness; denies: fainting, headache, left sided numbness, left sided weakness, numbness, paresthesia, pre-existing deficit, right sided numbness, right sided weakness, seizure, speech problems, tingling, tremors, weakness, others Musculoskeletal: denies: back pain, gout, joint pain, joint swelling, muscle pain, muscle stiffness, neck pain, others Integumetry: denies: bruises, change in color, change in hair/nails, dryness, laceration, lesions, lumps, rash, wounds, others Allergic/Immunocompromised: denies: Difficulty Healing, Frequent Infections, Hives, Itching, others Hematologic/Lymphatic: denies: anemia, blood clots, easy bleeding, easy bruising, swollen glands, others Endocrine: denies: excessive hunger, excessive sweating, excessive thirst, excessive urination, flushing, intolerance to cold, intolerance to heat, unexplained weight gain, unexplained weight loss, others Psychiatric: denies: anxiety, bipolar disorder, depression, hopeless, panic disorder, schizophrenia, sleepless, suicidal, others All Other Systems: Reviewed and Negative Physical Exam General Appearance: Moderate Distress HEENT: Normal ENT Inspection, Pharynx Normal, TMs Normal Neck: Full Range of Motion, Non-Tender, Normal, Normal Inspection Respiratory: Chest Non-Tender, Lungs Clear, No Accessory Muscle Use, No Respiratory Distress, Normal Breath Sounds Cardiovascular: No Edema, No JVD, No Murmur, No Gallop, Normal Peripheral Pulses, Regular Rate/Rhythm Breast Exam: Deferred Gastrointestinal: No Organomegaly, Non Tender, No Pulsatile Mass, Normal Bowel Sounds, Soft Genitalia: Deferred Pelvic: Deferred Rectal: Deferred Extremities: No calf tenderness, Normal capillary refill, Normal inspection, Normal range of motion, Non-tender, No pedal edema Musculoskeletal : Apperance: Normal Neurologic: Alert, strategic marketing manager II-XII nml as Tested, No Motor Deficits, Normal Affect, Normal Mood, No Sensory Deficits Cerebellar Function: NOT DONE Reflexes: NOT DONE Skin: Dry, Normal Color, Warm Peripheral Pulses: 3+ Radial (R), 3+ Radial (L) Lymphatic: No Adenopathy Was a procedure done? Was a procedure done?: No EKG EKG : Pulse Rate (adult): 107 [place]: Normal Cardiac Rhythm: NSR Block: None Hypertrophy: None ST: Normal Differential Dx Considerations may include: hypertensive urgency, hypertensive crisis X-Ray, Labs, Meds, VS Vital Signs Date Time Temp Pulse Resp B/P (MAP) Pulse Ox O2 Delivery O2 Flow Rate FiO2 04/17/25 08:38 107 04/17/25 08:33 107 04/17/25 08:20 97.7 93 19 160/95 98 97.7 Lab Test 04/17/25 08:40 Range/Units White Blood Count 5.5 4.4-10.8 10^3/uL Red Blood Count 5.31 H 4.0-5.20 10^6/uL Hemoglobin 16.1 12.2-16.2 g/dL Hematocrit 47.2 H 36.0-46.0 % Mean Corpuscular Volume 88.8 80.0-100.0 fL Mean Corpuscular Hemoglobin 30.2 28.0-32.0 pg Mean Corpuscular Hemoglobin Concent 34.1 32.0-36.0 g/dL Red Cell Distribution Width 14.5 H 11.8-14.3 % Platelet Count 186 140-450 10^3/uL Mean Platelet Volume 7.9 6.9-10.8 fL Neutrophils (%) (Auto) 59.7 37.0-80.0 % Lymphocytes (%) (Auto) 26.3 10.0-50.0 % Monocytes (%) (Auto) 10.4 0.0-12.0 % Eosinophils (%) (Auto) 2.4 0.0-7.0 % Basophils (%) (Auto) 1.2 0.0-2.0 % Neutrophils # (Auto) 3.3 1.6-8.6 10 ^3/uL Lymphocytes # (Auto) 1.4 0.4-5.4 10 ^3/uL Monocytes # (Auto) 0.6 0-1.3 10 ^3/uL Eosinophils # (Auto) 0.1 0-0.8 10 ^3/uL Basophils # (Auto) 0.1 0-0.2 10 ^3/uL Nucleated Red Blood Cells 0.1 % Sodium Level 136 136-145 mmol/L Potassium Level 3.3 L 3.5-5.1 mmol/L Chloride Level 97 L 98-107 mmol/L Carbon Dioxide Level 31 20-31 mmol/L Anion Gap 8 5-15 Blood Urea Nitrogen 12 9-23 mg/dL Creatinine 0.78 0.550-1.02 mg/dL Glomerular Filtration Rate Calc 76 >90 mL/min BUN/Creatinine Ratio 15.4 10.0-20.0 Serum Glucose 101 74-106 mg/dL Calcium Level 9.5 8.7-10.4 mg/dL Troponin I High Sensitivity 7 </=34 ng/L Patient alert. Came in because her blood pressure elevated. She has not been taking her medication for a month. Vitals stable. Potassium is low. Was given potassium. Was given clonidine. Explained to the patient. Continue monitoring. Time of 1ST Reevaluation: 09:00 Reevaluation 1ST: Unchanged Patient Education/Counseling: Diagnosis, Treatment Family Education/Counseling: No Family Present SEPSIS Sepsis Screen Date sepsis recognized/suspect: Apr 17, 2025 Time Sepsis recognized/suspect: 819 Recent Procedure: No On Antibiotic Therapy: No Respiratory Rate >20: No Heart Rate >90: Yes Temp<36 C (96.8 F) or >38.3 C: No SBP <90 or MAP <65 mmHG: No New Acute Mental Status Change: No Is the patient on CPAP, BIPAP,: No Physician Orders Urinalysis (04/17/25 08:30) Electrocardigram (04/17/25 08:38) Vital Signs Date Time Temp Pulse Resp B/P (MAP) Pulse Ox O2 Delivery O2 Flow Rate FiO2 04/17/25 08:38 107 04/17/25 08:33 107 04/17/25 08:20 97.7 93 19 160/95 98 97.7 Laboratory Tests Test 04/17/25 08:40 White Blood Count 5.5 10^3/uL (4.4-10.8) Departure 1 Departure Time of Disposition: 09:45 Impression: Primary Impression: Hypokalemia Additional Impression: Hypertensive urgency Disposition: 09 ADMITTED INPATIENT Admit to: Med Surg Condition: Guarded Critical Care Note Critical Care Time?: Yes (90 min-critical care time only) Stability Stability form required: No Heart Score Heart Score: Heart Score Response (Comments) Value History Slightly Suspicious 0 EKG Normal 0 Age >65 2 Risk Factors >3 or Hx ASHD 2 Troponin Normal limit 0 Total 4 I personally scribed for PRIYANKA WADSWORTH MD ([email or web address]) on 04/17/25 at 08:38. Electronically submitted by Radha Davis [email or web address]). PRIYANKA WADSWORTH MD Apr 17, 2025 08:38
[2025-04-17 08:55] LABS: Hematocrit 47.2 % (36.0-46.0); Hemoglobin 16.1 g/dL (12.2-16.2); Mean Corpuscular Hemoglobin 30.2 pg (28.0-32.0); Mean Corpuscular Volume 88.8 fL (80.0-100.0); Nucleated Red Blood Cells % 0.1 %
[2025-04-17 09:06] LABS: Sodium 136 mmol/L (136-145)
[2025-04-17 09:07] LABS: Anion Gap 8 (5-15); Carbon Dioxide 31 mmol/L (20-31)
[2025-04-17 09:08] LABS: Calcium 9.5 mg/dL (8.7-10.4)
[2025-04-17 09:12] LABS: Glucose 101 mg/dL (74-106)
[2025-04-17 09:13] LABS: BUN/Creatinine Ratio 15.4 (10.0-20.0); Blood Urea Nitrogen 12 mg/dL (9-23)
[2025-04-17 09:16] LABS: Chloride 97 mmol/L (98-107); Potassium 3.3 mmol/L (3.5-5.1)
[2025-04-17] MEDS: POTASSIUM EFFERVESENT TAB 25 MEQ PO ONE (09:54)
[2025-04-17 13:05] LABS: Urine Protein, UAD Negative (Negative)
--- NOTE | 2025-04-17 14:01 | DVH ---
XY CHEST XRAY 1 VIEW, HISTORY: COUGH COMPARISON: CT CHEST WITH CONTRAST on DOS: 04/16/24, CT CHEST WITH CONTRAST on DOS: 09/25/23, XY CHEST P ORTABLE on DOS: 11/20/22 CT CHEST WITH CONTRAST on DOS: 04/16/24, CT CHEST WITH CONTRAST on DOS: 09/25/23, XY CHEST PORTABLE on D OS: 11/20/22 TECHNICAL DATA: 1 view of the chest was obtained. FINDINGS: Lines and tubes: None Cardiomediastinal silhouette: normal Pulmonary vasculature: normal Lung expansion: normal Lung airspace: Right perihilar airspace opacity, similar to prior. Lung interstitium: normal Pleura: normal Pneumothorax: no Bones: Unremarkable Other: no IMPRESSION: Right perihilar airspace opacity, similar to prior. Similar lung aeration to prior chest x-ray.
[2025-04-17] MEDS ORDERED: ONDANSETRON HCL 4 MG/2 ML VIAL IV PRN ×2 (14:15→14:30)
[2025-04-17] MEDS ORDERED: DOCUSATE SOD 100 MG CAP PO PRN ×2 (14:15→14:30)
[2025-04-17] MEDS ORDERED: NITROGLYCERIN 0.4 MG SL TAB SL PRN ×2 (14:15→14:30)
--- NOTE | 2025-04-17 14:15 | DVHHP2 ---
History of Present Illness Reason for Visit: dizziness History of Present Illness 85-year-old female with past medical history of asthma, COPD, hypertension, cancer (type not specified), and prior hysterectomy, presents with worsening dizziness that has been ongoing for approximately one year, now accompanied by uncontrolled hypertension. The patient was last seen in the ED on February 25, 2025 for the same complaint and was discharged back to her assisted living facility ([facility]) after undergoing CT brain, which was unremarkable at that time. According to the daughter and nursing staff, the patients dizziness has progressively worsened, prompting this return visit. There is concern for medication non-compliance, as the patient reportedly ran out of her blood pressure medications a month ago, and has had persistently elevated BP over the past month. However, the patient provides inconsistent information, at times stating she took her meds recently, and at other times stating she ran out. She appears to have mild cognitive impairment or early dementia, though this is not formally documented in her history. Her current baseline is unclear and could not be fully verified by the facility nurse.In the ED, vital signs revealed hypertension, and she was given clonidine for blood pressure control. She also received potassium replacement for hypokalemia (K 3.3). CBC and CMP were otherwise unremarkable. She was afebrile and clinically stable. A chest X-ray and respiratory cultures were ordered as part of a general workup, and magnesium replacement was administered. A neurology consult was requested for further evaluation of her chronic dizziness. The patient will be admitted for further diagnostic workup, medication reconciliation, and blood pressure control. Past Medical History See HPI above Past Surgical History See HPI above Family History Reviewed, non-contributory to the management of this case. Past Social History The patient lives at home, denies smoking, alcohol or illicit drugs abuse. Review of Systems Constitutional: No: Fever, Chills, Sweats, Weakness, Malaise, Other Eyes: No: Pain, Vision change, Conjunctivae inflammation, Eyelid inflammation, Other, Redness ENT: No: Ear pain, Ear discharge, Nose pain, Nose discharge, Nose congestion, Mouth pain, Mouth swelling, Throat pain, Throat swelling, Other Respiratory: No: Cough, Dry, Shortness of breath, SOB with excertion, Wheezing, Hemoptysis, Pleuritic Pain, Sputum, Wheezing, Other Cardiovascular: No: Chest Pain, Palpitations, Orthopnea, Paroxysmal Noc. Dys pnea, Edema, Lt Headedness, Other Gastrointestinal: No: Nausea, Vomiting, Abdominal Pain, Diarrhea, Constipation, Melena, Hematochezia, Other Genitourinary: No Dysuria, No Frequency, No Incontinence, No Hematuria, No Retention, No Other Musculoskeletal: No: other, neck pain, shoulder pain, arm pain, back pain, hand pain, leg pain, foot pain Skin: No: Rash, Lesions, Jaundice, Bruising, Other Neurological: Weakness, Other (dizziness) Allergies: Coded Allergies: Corticosteroids (Verified Allergy, Unknown, 08/04/23) Flu Virus Vaccine (Unverified Allergy, Unknown, 08/04/23) Sulfa Antibiotics (Unverified Allergy, Unknown, 08/04/23) Amlodipine (Unverified Adverse Reaction, Unknown, 08/04/23) Uncoded Allergies: STEROIDS (Allergy, Unknown, 05/04/20) Exam Vital Signs Vital Signs Date Time Temp Pulse Resp B/P (MAP) Pulse Ox O2 Delivery O2 Flow Rate FiO2 04/17/25 13:00 62 22 140/62 (88) 93 04/17/25 11:08 97.8 97.8 04/17/25 09:58 Room Air* 0 21 General Appearance: Alert, Oriented X3, Cooperative, No acute distress HEENT: Atraumatic, PERRLA, EOMI, Mucous membr. moist/pink Respiratory: Clear to auscultation, Normal air movement Cardiovascular: Regular rate, Normal S1, Normal S2, No murmurs Abdominal: Normal bowel sounds, Soft, No tenderness, No hepatospenomegaly, No masses Extremities: No clubbing, No cyanosis, No edema, Normal pulses, No tenderness/swelling Skin: No rashes, No breakdown, No significant lesion Neuro: Normal gait, Normal speech, Strength at 5/5 X4 ext, Normal tone, Sensation intact, Other (Neuro nonfocal) Psych/Mental Status: Mental status NL, Mood NL Labs/Xrays I reviewed labs, imaging CT scan abdomen pelvis, EKG and all diagnostic studies on this patient from ED records and the medical chart Labs Test 04/17/25 09:10 04/17/25 08:40 Range/Units Urine Color Light-yellow Yellow Urine Clarity Clear Clear Urine pH 6.5 5.0-9.0 Urine Specific [place] 1.011 1.001-1.035 Urine Protein Negative Negative Urine Ketones 1+ H Negative Urine Blood Negative Negative /uL Urine Nitrite Negative Negative Urine Bilirubin Negative Negative Urine Urobilinogen Normal Negative mg/dL Urine Leukocyte Esterase Negative Negative /uL Urine RBC <1 0 - 4 /hpf Urine Microscopic WBC < 1 0-5 /HPF Urine Squamous Epithelial Cells None seen <5 /hpf Urine Bacteria None seen None Seen /hpf Urine Glucose Normal Normal mg/dL White Blood Count 5.5 4.4-10.8 10^3/uL Red Blood Count 5.31 H 4.0-5.20 10^6/uL Hemoglobin 16.1 12.2-16.2 g/dL Hematocrit 47.2 H 36.0-46.0 % Mean Corpuscular Volume 88.8 80.0-100.0 fL Mean Corpuscular Hemoglobin 30.2 28.0-32.0 pg Mean Corpuscular Hemoglobin Concent 34.1 32.0-36.0 g/dL Red Cell Distribution Width 14.5 H 11.8-14.3 % Platelet Count 186 140-450 10^3/uL Mean Platelet Volume 7.9 6.9-10.8 fL Neutrophils (%) (Auto) 59.7 37.0-80.0 % Lymphocytes (%) (Auto) 26.3 10.0-50.0 % Monocytes (%) (Auto) 10.4 0.0-12.0 % Eosinophils (%) (Auto) 2.4 0.0-7.0 % Basophils (%) (Auto) 1.2 0.0-2.0 % Neutrophils # (Auto) 3.3 1.6-8.6 10 ^3/uL Lymphocytes # (Auto) 1.4 0.4-5.4 10 ^3/uL Monocytes # (Auto) 0.6 0-1.3 10 ^3/uL Eosinophils # (Auto) 0.1 0-0.8 10 ^3/uL Basophils # (Auto) 0.1 0-0.2 10 ^3/uL Nucleated Red Blood Cells 0.1 % Sodium Level 136 136-145 mmol/L Potassium Level 3.3 L 3.5-5.1 mmol/L Chloride Level 97 L 98-107 mmol/L Carbon Dioxide Level 31 20-31 mmol/L Anion Gap 8 5-15 Blood Urea Nitrogen 12 9-23 mg/dL Creatinine 0.78 0.550-1.02 mg/dL Glomerular Filtration Rate Calc 76 >90 mL/min BUN/Creatinine Ratio 15.4 10.0-20.0 Serum Glucose 101 74-106 mg/dL Calcium Level 9.5 8.7-10.4 mg/dL Troponin I High Sensitivity 7 </=34 ng/L SEPSIS Sepsis Screen Date sepsis recognized/suspect: Apr 17, 2025 Time Sepsis recognized/suspect: 819 Recent Procedure: No On Antibiotic Therapy: No Respiratory Rate >20: No Heart Rate >90: Yes Temp<36 C (96.8 F) or >38.3 C: No SBP <90 or MAP <65 mmHG: No New Acute Mental Status Change: No Is the patient on CPAP, BIPAP,: No Physician Orders Electrocardigram (04/17/25 08:38) Chest Xray 1 View (04/17/25 13:22) Covid19 Antigen Debbie (04/17/25 ) Rapid Influenza A&B (04/17/25 13:23) Aspirin Tablet (04/18/25 10:00) Metoprolol Tartrate Tablet (Lopressor Ta (04/19/25 10:00) Furosemide Tablet (Lasix Tablet) (04/18/25 10:00) Admit (04/17/25 14:10) Allergies (04/17/25 14:10) Code Status (04/17/25 14:10) Ondansetron Hcl (Zofran) (04/17/25 14:15) Docusate Sodium Capsule (Colace Capsule) (04/17/25 14:15) Enoxaparin Sodium (Lovenox) (04/18/25 10:00) Complete Blood Count (04/18/25 04:00) Comprehensive Metabolic Panel (04/18/25 04:00) Cardiac Diet-2gna,Lofat,Lochol (04/17/25 Dinner) Echo 2d Mode Cardiac Dop (04/17/25 14:10) Carotid Duplx W Color Dop (04/17/25 14:10) Condition: Stable (04/17/25 14:10) BRP (04/17/25 14:10) Sequential Compression Device (04/17/25 ) Nitroglycerin Sublingual (Ntrostat Subli (04/17/25 14:15) Stat Ekg For Chest Pain (04/17/25 14:10) Notify Md Of Changes From Base (04/17/25 14:10) Carbon Paper Coating Supervisor For 24 Hours (04/17/25 14:10) Emergency Dysrhythmia Protocol (04/17/25 14:10) Rhythm Strips Once Every Shift (04/17/25 14:10) Oxygen By Nasal Cannula (04/17/25 14:10) * Neurology Consult (04/17/25 14:10) Vital Signs Date Time Temp Pulse Resp B/P (MAP) Pulse Ox O2 Delivery O2 Flow Rate FiO2 04/17/25 13:00 62 22 140/62 (88) 93 04/17/25 12:00 69 04/17/25 11:08 97.8 81 16 137/86 (103) 93 97.8 04/17/25 09:58 Room Air* 0 21 04/17/25 09:57 98.0 87 15 164/90 (114) 97 98.0 04/17/25 09:55 169/90 04/17/25 08:38 107 04/17/25 08:33 107 04/17/25 08:20 97.7 93 19 160/95 98 97.7 Laboratory Tests Test 04/17/25 08:40 White Blood Count 5.5 10^3/uL (4.4-10.8) Medications Medications Dose Ordered Sig/Monty Route Start Time Stop Time Status Last Admin Dose Admin Clonidine HCl 0.2 mg ONCE ONCE PO 04/17/25 09:45 04/17/25 09:47 DC 04/17/25 09:55 0.2 MG Potassium Bicarbonate 25 meq ONCE ONCE PO 04/17/25 09:45 04/17/25 09:47 DC 04/17/25 09:54 25 MEQ Assessment/Plan Assessment/Plan 80 yr female with Worsening chronic dizziness with uncontrolled hypertension and medication non-compliance; admission for neurology evaluation, blood pressure management, and cognitive assessment. acute on Chronic Dizziness Worsening over the past year CT brain on 02/25/25 was unremarkable Neurology consult ordered Monitor orthostatics, consider vestibular causes Reassess with further imaging or labs as needed uncontrolled Hypertension Reportedly off meds for 1 month Treated with clonidine in ED Resume home antihypertensives after med reconciliation Monitor BP closely inpatient acute Hypokalemia K 3.3 in ED Repleted with PO potassium Monitor BMP daily Possible Cognitive Decline / Undiagnosed Dementia (provisional) Inconsistent history Unclear medication compliance rounding team to Consider formal cognitive screening Discuss with family, nursing staff, and PCP for documentation ordered neurology consult to help with capacity acute cough ordered cxr fu results ordered albuterol/atrovent prn ordered covid and influenza fu results chronic problems Hypertension Chronic dizziness COPD Asthma History of cancer S/p hysterectomy Possible cognitive impairment (to be evaluated) FEN / PPx: Fluids: IV fluids Electrolytes: Replete potassium and magnesium as needed Nutrition: Regular diet if no dysphagia DVT Prophylaxis: SCDs GI Prophylaxis: no gi ppx since no hx of gerds or gi bleed DISPOSITION: Admit to medicine for evaluation and management of chronic dizziness, uncontrolled hypertension, and potential cognitive decline. neurology consult. Plan discussed with: Patient My Orders Orders - RICHARDSON PIERRE DNP Procedure Category Date Status Time Chest Xray 1 View XY 04/17/25 Resulted 13:22 Covid19 Antigen Debbie LAB 04/17/25 Logged Rapid Influenza A&B LAB 04/17/25 Logged 13:23 Aspirin Tablet PHA 04/18/25 Verified 10:00 Metoprolol Tartrate PHA 04/19/25 Verified Tablet (Lopressor Ta 10:00 Furosemide Tablet PHA 04/18/25 Verified (Lasix Tablet) 10:00 Admit ADMIT 04/17/25 Verified 14:10 Allergies MELVI 04/17/25 Verified 14:10 Code Status CODE 04/17/25 Verified 14:10 Ondansetron Hcl PHA 04/17/25 Verified (Zofran) 14:15 Docusate Sodium PHA 04/17/25 Verified Capsule (Colace 14:15 Enoxaparin Sodium PHA 04/18/25 Verified (Lovenox) 10:00 Complete Blood Count LAB 04/18/25 Verified 04:00 Comprehensive LAB 04/18/25 Verified Metabolic Panel 04:00 Cardiac DIET 04/17/25 Verified Diet-2gna,Lofat,Lochol Dinner Echo 2d Mode Cardiac US 04/17/25 Verified DOP 14:10 Carotid Duplx W Color US 04/17/25 Verified DOP 14:10 Condition: Stable MELVI 04/17/25 Verified 14:10 BRP MELVI 04/17/25 Verified 14:10 Sequential MELVI 04/17/25 Verified Compression Device Nitroglycerin PHA 04/17/25 Verified Sublingual (Ntrostat 14:15 Stat Ekg For Chest [facility] 04/17/25 Verified Pain 14:10 Notify Md Of Changes [facility] 04/17/25 Verified From Base 14:10 Carbon Paper Coating Supervisor For [facility] 04/17/25 Verified 24 Hours 14:10 Emergency Dysrhythmia [facility] 04/17/25 Verified Protocol 14:10 Rhythm Strips Once [facility] 04/17/25 Verified Every Shift 14:10 Oxygen By Nasal RT 04/17/25 Verified Cannula 14:10 * Neurology Consult [facility] 04/17/25 Verified 14:10 Date of Service: Apr 17, 2025 Billing Provider: RICHARDSON PIERRE DNP Common Visit Codes: [id number] INP/OBS CARE (HIGH) RICHARDSON PIERRE DNP Apr 17, 2025 14:15
[2025-04-17] MEDS: MECLIZINE HCL 25 MG TAB PO ONE (16:03)
--- NOTE | 2025-04-17 16:10 | DVH ---
Carotid Duplex Clinical History: eval for vascular occlusion Comparison: US SOFT TISSUE NECK on DOS: 04/15/24, US LT UPPER DVT on DOS: 04/09/24, US LT UPPER DVT on DOS: 04/04/24, US LT UPPER DVT on DOS: 04/01/24, US LT UPPER DVT on DOS: 09/30/23 Technique: Duplex Doppler evaluation of the extracranial carotid and vertebral arteries including color Doppler and spectral/pulsed waveform analysis was performed. Findings: RIGHT SIDE: The peak systolic velocities are 55 cm/s in the CCA, 53 cm/s in the ICA. The ICA/CCA ratio is 1.0. The external carotid artery is patent with peak systolic velocity of 51 cm/s proximally. There is appropriate antegrade flow in the right vertebral artery. LEFT SIDE: The peak systolic velocities are 51 cm/s in the CCA, 63 cm/s in the ICA. The ICA/CCA ratio is 1.2. The external carotid artery is patent with peak systolic velocity of 47 cm/s proximally. There is appropriate antegrade flow in the left vertebral artery. IMPRESSION: No hemodynamically significant stenosis noted in the right carotid system. No hemodynamically significant stenosis noted in the left carotid system. Reference: Radiology 2003; [id number] Normal ICA PSV is <125 cm/sec and no plaque or intimal thickening is visible sonographically addition al criteria include ICA/CCA PSV ratio <2.0 and ICA EDV <40 cm/sec <50% ICA stenosis ICA PSV is <125 cm/sec and plaque or intimal thickening is visible sonographically additional criteria include ICA/CCA PSV ratio <2.0 and ICA EDV <40 cm/sec 50-69% ICA stenosis ICA PSV is 125-230 cm/sec and plaque is visible sonographically additional criter ia include ICA/CCA PSV ratio of 2.0-4.0 and ICA EDV of 40-100 cm/sec 70% ICA stenosis but less than near occlusion ICA PSV is >230 cm/sec and visible plaque and luminal narrowing are seen at de luna-scale and color Doppler ultrasound (the higher the Doppler parameters lie above the threshold of 230 cm/sec, the greater the likelihood of severe disease) additional criteria include ICA/CCA PSV ratio >4 and ICA EDV >100 cm/sec
[2025-04-17 16:48] LABS: COVID19 ANTIGEN SOFIA FIA NEGATIVE (NEGATIVE)
[2025-04-17 17:00] VITALS: BP 156/88; PULSE 61; RESP 18; TEMP 97.6; O2SAT 94
[2025-04-17] MEDS ORDERED: IPRATROPIUM BROM 0.5 MG/2.5ML INH SOL NEB PRN (17:00)
[2025-04-17] MEDS ORDERED: ALBUTEROL SULF 2.5 MG/0.5ML(0.5%) NEB SOLN NEB PRN (17:00)
[2025-04-17 17:31] VITALS: BP 156/88; PULSE 61; RESP 16; RESP 18; TEMP 97.6; O2SAT 94
[2025-04-17 18:43] VITALS: RESP 16
[2025-04-17 19:43] VITALS: BP 140/62; PULSE 65; RESP 18; TEMP 97.8; O2SAT 65; O2SAT 93
[2025-04-17 20:00] VITALS: RESP 16
[2025-04-17 21:00] VITALS: BP 127/75; PULSE 56; RESP 17; TEMP 97.8; O2SAT 93
[2025-04-17] MEDS: ACETAMINOPHEN 325 MG TAB PO ONE (21:11)
[2025-04-18] VITALS (11 sets, daily range): BP systolic 126–167; BP diastolic 76–86; PULSE 57–105; RESP 16–18; TEMP 97.9–98.7; O2SAT 89–96
[2025-04-18] MEDS: ENOXAPARIN SOD 40 MG/0.4 ML SYRINGE SC SCH (09:57)
[2025-04-18] MEDS: FUROSEMIDE 20 MG TAB PO SCH (09:58)
[2025-04-18] MEDS ORDERED: FUROSEMIDE 20 MG TAB PO SCH (10:00)
[2025-04-18] MEDS ORDERED: ENOXAPARIN SOD 40 MG/0.4 ML SYRINGE SC SCH (10:00)
--- NOTE | 2025-04-18 12:47 | DVHPN2 ---
Progress Note Date Seen: Apr 18, 2025 Medical Necessity Reason Pt with a Central, PICC or Fol: No Subjective Patient reports: No new complaints Review of Systems: HEENT:Normal, CVS:Normal, RESPIRATORY:Normal, GI:Normal, :Normal, MSK:Normal, NEURO:Normal Objective vital signs Vital Sign Date Time Temp Pulse Resp B/P (MAP) Pulse Ox O2 Delivery O2 Flow Rate FiO2 04/18/25 10:00 92 Room Air* 0 21 04/18/25 09:58 126/79 04/18/25 09:00 98.6 101 16 98.6 Total Intake and Output 04/17/25 04/17/25 04/18/25 15:00 23:00 07:00 Intake Total 250 ml Balance 250 ml medications Current Medications Medications Dose Ordered Sig/Monty Route Start Time Stop Time Status Last Admin Dose Admin Ondansetron HCl 4 mg Q4HP PRN IV 04/17/25 14:30 Enoxaparin Sodium 40 mg DAILY SC 04/18/25 10:00 04/18/25 09:57 40 MG Aspirin 81 mg DAILY PO 04/18/25 10:00 04/18/25 09:59 81 MG Metoprolol Tartrate 25 mg EOD PO 04/19/25 10:00 Furosemide 20 mg DAILY PO 04/18/25 10:00 Docusate Sodium 100 mg BIDPRN PRN PO 04/17/25 14:30 Nitroglycerin 0.4 mg Q5MINP PRN SL 04/17/25 14:30 Albuterol 2.5 mg Q4HPRN PRN NEB 04/17/25 17:00 Ipratropium [place] 0.5 mg Q4HPRN PRN NEB 04/17/25 17:00 Examination: GENERAL:Normal, HEENT:Normal, NECK:Normal, LUNGS:Normal, CVS:Normal, ABDOMEN:Normal, MSK:Normal, SKIN:Normal, NEURO:Normal, :Normal laboratory and microbiology Laboratory Tests 04/17/25 08:40 Test 04/17/25 08:40 Range/Units Serum Glucose 101 74-106 mg/dL Problem List/Assessment/Plan Problem List/Assessment/Plan #1 dizziness ? autonomic imbalance: neuro eval #2 htn #3 h/o breast cancer #4 asthma/copd advance care planning- full code-time spent 19 mins Plan discussed with: Patient Date of Service: Apr 18, 2025 Billing Provider: LUCY PIKE MD Common Visit Codes: [id number] INP/OBS CARE(HIGH) Secondary Visit Codes: [id number] CARE PLAN 30 MINUTES LUCY PIKE MD Apr 18, 2025 12:47
--- NOTE | 2025-04-18 16:28 | DVHINCON2 ---
Date of service: Apr 18, 2025 Family History: FH: alcoholism G8 FATHER FH: lung cancer G8 MOTHER FHx: pancreatic cancer AUNT AUNT Family history: Hypertension Stroke GRANDFATHER Allergies: Coded Allergies: Corticosteroids (Verified Allergy, Unknown, 08/04/23) Flu Virus Vaccine (Unverified Allergy, Unknown, 08/04/23) Sulfa Antibiotics (Unverified Allergy, Unknown, 08/04/23) Amlodipine (Unverified Adverse Reaction, Unknown, 08/04/23) Uncoded Allergies: STEROIDS (Allergy, Unknown, 05/04/20) Home Meds Active Scripts Cephalexin Monohydrate (Cephalexin) 500 Mg Tab, 1 TAB PO TID, #30 TAB Prov:REBECCA GONZALES 06/25/24 Letrozole (LETROZOLE) 2.5 Mg Tab, 2.5 MG PO DAILY for 30 Days, #30 TAB 2 Refills Prov:LUCY PIKE MD 04/22/24 Levofloxacin Hemihydrate (LEVOFLOXACIN) 750 Mg Tab, 1 TAB PO DAILY, #14 TAB Prov:CHARLY MERCER DO 04/04/24 Clindamycin Hcl (Clindamycin Hcl) 150 Mg Cap, 300 MG PO Q8H for 14 Days, #42 CAP 0 Refills Prov:CHARLY MERCER DO 04/04/24 Reported Medications Doxycycline Hyclate (Doxycycline Hyclate) 100 Mg Cap, 1 CAP PO BID 04/10/24 Furosemide (Furosemide) 20 Mg Tab, 1 TAB PO DAILY 04/10/24 Meclizine HCl (Meclizine Hydrochloride) 12.5 Mg Tab, 1 TAB PO BIDPRN PRN for DIZZINESS 04/01/24 Metoprolol Tartrate (Metoprolol Tartrate) 25 Mg Tab, 25 MG PO EOD for 30 Days, MG 12/14/19 Aspirin (Asa) 81 Mg Ch, 81 MG PO, TAB.CHEW 12/14/19 Current Medications Current Medications Medications (Trade) Dose Ordered Sig/Monty Route PRN Reason Start Time Stop Time Status Last Admin Aspirin 81 mg DAILY PO 04/18/25 10:00 04/17/25 14:23 DC Metoprolol Tartrate (Lopressor Tablet) 25 mg EOD PO 04/19/25 10:00 04/17/25 14:23 DC Furosemide (Lasix Tablet) 20 mg DAILY PO 04/18/25 10:00 04/17/25 14:23 DC Enoxaparin Sodium (Lovenox) 40 mg DAILY SC 04/18/25 10:00 04/17/25 14:23 DC Enoxaparin Sodium (Lovenox) 40 mg DAILY SC 04/18/25 10:00 04/18/25 12:46 DC 04/18/25 09:57 Aspirin 81 mg DAILY PO 04/18/25 10:00 04/18/25 09:59 Metoprolol Tartrate (Lopressor Tablet) 25 mg EOD PO 04/19/25 10:00 Furosemide (Lasix Tablet) 20 mg DAILY PO 04/18/25 10:00 Vital Signs Vital Signs Date Time Temp Pulse Resp B/P (MAP) Pulse Ox O2 Delivery O2 Flow Rate FiO2 04/18/25 10:00 92 Room Air* 0 21 04/18/25 09:58 126/79 04/18/25 09:00 98.6 101 16 98.6 Labs/Diagnostic Data Labs Test 04/17/25 16:01 04/17/25 09:10 04/17/25 08:40 Range/Units Influenza Type A Antigen Negative Negative Influenza Type B Antigen Negative Negative SARS-CoV-2 Antigen (Rapid) Negative NEGATIVE Urine Color Light-yellow Yellow Urine Clarity Clear Clear Urine pH 6.5 5.0-9.0 Urine Specific [place] 1.011 1.001-1.035 Urine Protein Negative Negative Urine Ketones 1+ H Negative Urine Blood Negative Negative /uL Urine Nitrite Negative Negative Urine Bilirubin Negative Negative Urine Urobilinogen Normal Negative mg/dL Urine Leukocyte Esterase Negative Negative /uL Urine RBC <1 0 - 4 /hpf Urine Microscopic WBC < 1 0-5 /HPF Urine Squamous Epithelial Cells None seen <5 /hpf Urine Bacteria None seen None Seen /hpf Urine Glucose Normal Normal mg/dL White Blood Count 5.5 4.4-10.8 10^3/uL Red Blood Count 5.31 H 4.0-5.20 10^6/uL Hemoglobin 16.1 12.2-16.2 g/dL Hematocrit 47.2 H 36.0-46.0 % Mean Corpuscular Volume 88.8 80.0-100.0 fL Mean Corpuscular Hemoglobin 30.2 28.0-32.0 pg Mean Corpuscular Hemoglobin Concent 34.1 32.0-36.0 g/dL Red Cell Distribution Width 14.5 H 11.8-14.3 % Platelet Count 186 140-450 10^3/uL Mean Platelet Volume 7.9 6.9-10.8 fL Neutrophils (%) (Auto) 59.7 37.0-80.0 % Lymphocytes (%) (Auto) 26.3 10.0-50.0 % Monocytes (%) (Auto) 10.4 0.0-12.0 % Eosinophils (%) (Auto) 2.4 0.0-7.0 % Basophils (%) (Auto) 1.2 0.0-2.0 % Neutrophils # (Auto) 3.3 1.6-8.6 10 ^3/uL Lymphocytes # (Auto) 1.4 0.4-5.4 10 ^3/uL Monocytes # (Auto) 0.6 0-1.3 10 ^3/uL Eosinophils # (Auto) 0.1 0-0.8 10 ^3/uL Basophils # (Auto) 0.1 0-0.2 10 ^3/uL Nucleated Red Blood Cells 0.1 % Sodium Level 136 136-145 mmol/L Potassium Level 3.3 L 3.5-5.1 mmol/L Chloride Level 97 L 98-107 mmol/L Carbon Dioxide Level 31 20-31 mmol/L Anion Gap 8 5-15 Blood Urea Nitrogen 12 9-23 mg/dL Creatinine 0.78 0.550-1.02 mg/dL Glomerular Filtration Rate Calc 76 >90 mL/min BUN/Creatinine Ratio 15.4 10.0-20.0 Serum Glucose 101 74-106 mg/dL Calcium Level 9.5 8.7-10.4 mg/dL Troponin I High Sensitivity 7 </=34 ng/L Plan/Recommendation [facility] Note # Demographics Consult Type: General Neurology Patient Location: Inpatient First Name: GALILEA Last Name: LUCIEN Date of : 1945 Age: 80 Gender: Female Facility: [facility] Time of Initial Page ( Time): 04/18/2025 12:31 First Contact with Site ( Time): 04/18/2025 12:31 # HPI Chief Complaint: - dizziness History: 80 y/o woman on aspirin was admitted 04/17 with dizziness and hypertension. Dizziness present for the last year. Patient reports she has not seen other providers for it. Dizziness comes and goes. No clear provoking factor though movement can make symptoms worse. Hasn't noticed hearing changes. No arm or leg coordination difficulties. Not certain about any ringing in her ear. Symptoms not particularly worse over the last year. Has not had a brain MRI. # Scores Time of exam and NIHSS (Bates Time): 04/18/2025 13:39 Level of Consciousness 1a: [0] = Alert; keenly responsive LOC Questions 1b: [2] = Answers neither correctly LOC Commands 1c: [0] = Performs both tasks correctly Best Gaze 2: [0] = Normal Visual 3: [0] = No visual loss Facial Palsy 4: [0] = Normal symmetrical movements Motor Arm Left 5a: [0] = No drift Motor Arm Right 5b: [0] = No drift Motor Leg Left 6a: [0] = No drift Motor Leg Right 6b: [0] = No drift Limb Ataxia 7: [0] = Absent Sensory 8: [0] = Normal Best Language 9: [0] = No aphasia Dysarthria 10: [0] = Normal Extinction and Inattention 11: [0] = No abnormality NIHSS Total: 2 # Data Other Imaging: CUS: No sig stenosis # Assessment Impression: - Vertigo The intermittent pattern of symptoms favors BPPV. # Plan Imaging: (urgency: routine): MRI Brain with and without gadolinium, IAC protocol Therapy/Evaluation: PT for vestibular rehab Other: - If patient has any neurological deterioration please call me back immediately # Logistics Attestation of consult completion: The patient is located at: [facility]. Facility staff participated in the visit. I performed this telemedicine visit from my offsite office utilizing interactive 2 way audio and visual telecommunication technology at the request of the onsite inpatient provider. Total time spent in telemedicine encounter: I spent 20 minutes reviewing clinical data and/or imaging, obtaining history, examining the patient, communicating with the onsite care team, and in preparation of this report. # Demographics First Name: GALILEA Last Name: LUCIEN Facility: [facility] Plan discussed with: Patient ASHLEIGH ELDRIDGE MD Apr 18, 2025 16:28
--- NOTE | 2025-04-18 16:32 | DVHSR ---
APPROVED REPORT EXAM: Two-dimensional and M-mode echocardiogram with Doppler and color Doppler. Blood Pressure: 139/76 mmHg INDICATION Eval cardiac function RISK FACTORS Height: 5'2", Weight: 110 DIMENSIONS LVDd3.1 (3.8-5.7cm)LA (2D)3.8 (1.9-4.0cm)Aortic Root2.9 (2.0-3.7cm) LVDs1.8 (2.5-4.0cm)LA (MM) (1.9-4.0cm)Aortic Cusp Exc1.5 (1.5-2.0cm) EF (%) 74.0 (55-70%)Rt. Atrium (1.9-4.0cm)Asc. Aorta2.8 cm IVSd1.2 (0.7-1.1cm)RV (D) (1.8-2.4cm) PWd1.0 (0.7-1.1cm) Mitral Valve MitralMitral Stenosis E/A ratio0.02D MVAcm2 Aortic Valve Aortic ValveAortic Stenosis LVOT Diameter2.1 (1.8-2.4cm)Doppler AVAcm2 Other Information Quality : Technically LimitedRhythm : Technically limited study due to patient position and body habitus. Conclusion lvef 55% moderate LVH RV not well seen left atrium enlarged mild pericardial fat pad noted ivc dilated mild
[2025-04-19] VITALS (9 sets, daily range): BP systolic 124–157; BP diastolic 68–101; PULSE 58–99; RESP 16–18; TEMP 96.2–98.5; O2SAT 89–94
[2025-04-19 06:06] LABS: Hematocrit 43.0 % (36.0-46.0); Hemoglobin 14.8 g/dL (12.2-16.2); Mean Corpuscular Hemoglobin 30.5 pg (28.0-32.0); Mean Corpuscular Volume 88.5 fL (80.0-100.0); Nucleated Red Blood Cells % 0.2 %
--- NOTE | 2025-04-19 06:13 | ECG ---
[facility] Test Date: 2025-04-17 Test Time: 08:33:07 Pat Name: GALILEA MCGRAW Department: [facility] ED Patient ID: [id number] Room: 0274 A Gender: F Interior Wirer: MENG : 1945 Requested By: PRIYANKA WADSWORTH Order Number: [id number] Reading MD: Jeffry Hardy Measurements Intervals [place] Rate: 107 P: 74 TN: 169 QRS: -28 QRSD: 102 T: 148 QT: 352 QTc: 470 Interpretive Statements Sinus tachycardia ROSELINE, consider biatrial enlargement LVH with secondary repolarization abnormality Anterior infarct, old Electronically Signed On 04-21-2025 22:01:24 PDT by Jeffry Hardy Please click the below link to view image of tracing.
[2025-04-19 06:17] LABS: Alanine Aminotransferase 11 U/L (7-40); Albumin 3.8 g/dL (3.2-4.8); Anion Gap 8 (5-15); BUN/Creatinine Ratio 18.9 (10.0-20.0); Bilirubin, Total 0.8 mg/dL (0.2-1.0); Blood Urea Nitrogen 14 mg/dL (9-23); Calcium 9.2 mg/dL (8.7-10.4); Chloride 101 mmol/L (98-107); Glucose 77 mg/dL (74-106); Potassium 3.8 mmol/L (3.5-5.1); Sodium 140 mmol/L (136-145); Total Protein 6.7 g/dL (5.7-8.2)
[2025-04-19 06:21] LABS: Alkaline Phosphatase 45 U/L (46-116); Carbon Dioxide 31 mmol/L (20-31)
[2025-04-19] MEDS: METOPROLOL TARTRATE 25 MG TAB PO SCH (09:26)
[2025-04-19] MEDS ORDERED: METOPROLOL TARTRATE 25 MG TAB PO SCH (10:00)
--- NOTE | 2025-04-19 12:01 | DVHPN2 ---
Progress Note Date Seen: Apr 19, 2025 Medical Necessity Reason Pt with a Central, PICC or Fol: No Subjective Patient reports: No new complaints Review of Systems: HEENT:Normal, CVS:Normal, RESPIRATORY:Normal, GI:Normal, :Normal, MSK:Normal, NEURO:Normal Objective vital signs Vital Sign Date Time Temp Pulse Resp B/P (MAP) Pulse Ox O2 Delivery O2 Flow Rate FiO2 04/19/25 09:26 129/96 04/19/25 09:26 119 04/19/25 09:00 98.5 18 89 98.5 04/19/25 08:00 Room Air* 0 21 Total Intake and Output 04/18/25 04/18/25 04/19/25 15:00 23:00 07:00 Intake Total 510 ml 350 ml Balance 510 ml 350 ml medications Current Medications Medications Dose Ordered Sig/Monty Route Start Time Stop Time Status Last Admin Dose Admin Ondansetron HCl 4 mg Q4HP PRN IV 04/17/25 14:30 Aspirin 81 mg DAILY PO 04/18/25 10:00 04/19/25 09:27 81 MG Metoprolol Tartrate 25 mg EOD PO 04/19/25 10:00 04/19/25 09:26 25 MG Furosemide 20 mg DAILY PO 04/18/25 10:00 04/19/25 09:26 20 MG Docusate Sodium 100 mg BIDPRN PRN PO 04/17/25 14:30 Nitroglycerin 0.4 mg Q5MINP PRN SL 04/17/25 14:30 Albuterol 2.5 mg Q4HPRN PRN NEB 04/17/25 17:00 Ipratropium [place] 0.5 mg Q4HPRN PRN NEB 04/17/25 17:00 Clonidine HCl 0.1 mg Q6HP PRN PO 04/18/25 21:15 Examination: GENERAL:Normal, HEENT:Normal, NECK:Normal, LUNGS:Normal, CVS:Normal, ABDOMEN:Normal, MSK:Normal, SKIN:Normal, NEURO:Normal, :Normal laboratory and microbiology Laboratory Tests 04/19/25 04:57 Test 04/19/25 04:57 Range/Units Serum Glucose 77 74-106 mg/dL Problem List/Assessment/Plan Problem List/Assessment/Plan #1 dizziness ? autonomic imbalance: neuro eval, mri brain #2 htn ? accelerated: adjust meds #3 h/o breast cancer #4 asthma/copd dw daughter plan of care advance care planning- full code-time spent 19 mins Plan discussed with: Patient, Daughter My Orders My Orders Orders - LUCY PIKE MD Procedure Category Date Status Time Pt Request For Service PT 04/18/25 Logged 12:43 Date of Service: Apr 19, 2025 Billing Provider: LUCY PIKE MD Common Visit Codes: [id number] INP/OBS CARE(HIGH) LUCY PIKE MD Apr 19, 2025 12:01
[2025-04-19] MEDS: LISINOPRIL 5 MG TAB PO ONE (12:22)
[2025-04-19] MEDS: LORazepam 2MG/ML-1ML VIAL IV ONE (13:41)
--- NOTE | 2025-04-19 14:36 | DVH ---
CLINICAL HISTORY: cva TECHNIQUE: Routine multiplanar imaging of the brain was performed without gadolinium contrast. COMPARISON: CT HEAD WITHOUT CONTRAST on DOS: 02/25/25, US SOFT TISSUE NECK on DOS: 04/15/24, CT HEAD WIT HOUT CONTRAST on DOS: 12/23/22 FINDINGS: Evaluation is limited due to image degradation secondary to patient motion. There is moderate brain volume loss. There is no abnormal restricted diffusion to suggest acute infar ction. There are no significant chronic small vessel ischemic foci. There is no evidence for acute ischemic changes, mass, mass effect, or extra-axial fluid collection. There is no hydrocephalus or midline shift. The cerebral sulci and subarachnoid cisterns are not effa ángela. The imaged paranasal sinuses are clear. There has been bilateral cataract extraction. The midline str uctures, including the corpus callosum, are unremarkable. The intracranial flow voids are maintained. IMPRESSION: Limited exam with no acute intracranial abnormality seen. No evidence for acute infarct.
[2025-04-20 01:00] VITALS: BP_SYST 130; BP_SYST 145; BP_DIAS 82; BP_DIAS 83; PULSE 56; PULSE 59; RESP 17; TEMP 97.8; O2SAT 92
[2025-04-20 05:00] VITALS: BP_SYST 141; BP_SYST 150; BP_DIAS 72; BP_DIAS 79; PULSE 51; PULSE 59; RESP 18; TEMP 97.7; O2SAT 95
[2025-04-20 08:37] VITALS: O2SAT 93
[2025-04-20 08:42] VITALS: BP 131/67; PULSE 63; RESP 16; TEMP 97.5; O2SAT 94
[2025-04-20 10:00] VITALS: O2SAT 93
[2025-04-20] MEDS: LISINOPRIL 5 MG TAB PO SCH (10:14)
--- NOTE | 2025-04-20 12:17 | DVHDS2 ---
Discharge Summary Date of Admission Apr 17, 2025 at 14:10 Date of Discharge: Apr 20, 2025 Labs/Diagnostic Data: Laboratory Results Test 04/19/25 04:57 04/17/25 16:01 04/17/25 09:10 04/17/25 08:40 White Blood Count 5.7 10^3/uL (4.4-10.8) Red Blood Count 4.86 10^6/uL (4.0-5.20) Hemoglobin 14.8 g/dL (12.2-16.2) Hematocrit 43.0 % (36.0-46.0) Mean Corpuscular Volume 88.5 fL (80.0-100.0) Mean Corpuscular Hemoglobin 30.5 pg (28.0-32.0) Mean Corpuscular Hemoglobin Concent 34.4 g/dL (32.0-36.0) Red Cell Distribution Width 14.4 % (11.8-14.3) Platelet Count 178 10^3/uL (140-450) Mean Platelet Volume 8.1 fL (6.9-10.8) Neutrophils (%) (Auto) 55.3 % (37.0-80.0) Lymphocytes (%) (Auto) 28.4 % (10.0-50.0) Monocytes (%) (Auto) 11.0 % (0.0-12.0) Eosinophils (%) (Auto) 4.0 % (0.0-7.0) Basophils (%) (Auto) 1.3 % (0.0-2.0) Neutrophils # (Auto) 3.2 10 ^3/uL (1.6-8.6) Lymphocytes # (Auto) 1.6 10 ^3/uL (0.4-5.4) Monocytes # (Auto) 0.6 10 ^3/uL (0-1.3) Eosinophils # (Auto) 0.2 10 ^3/uL (0-0.8) Basophils # (Auto) 0.1 10 ^3/uL (0-0.2) Nucleated Red Blood Cells 0.2 % Sodium Level 140 mmol/L (136-145) Potassium Level 3.8 mmol/L (3.5-5.1) Chloride Level 101 mmol/L (98-107) Carbon Dioxide Level 31 mmol/L (20-31) Anion Gap 8 (5-15) Blood Urea Nitrogen 14 mg/dL (9-23) Creatinine 0.74 mg/dL (0.550-1.02) Glomerular Filtration Rate Calc 81 mL/min (>90) BUN/Creatinine Ratio 18.9 (10.0-20.0) Serum Glucose 77 mg/dL (74-106) Calcium Level 9.2 mg/dL (8.7-10.4) Total Bilirubin 0.8 mg/dL (0.2-1.0) Aspartate Amino Transferase (AST) 28 U/L (13-40) Alanine Aminotransferase (ALT) 11 U/L (7-40) Alkaline Phosphatase 45 U/L (46-116) Total Protein 6.7 g/dL (5.7-8.2) Albumin 3.8 g/dL (3.2-4.8) Vitamin B12 Level 481 pg/mL (211-911) Thyroid Stimulating Hormone (TSH) 1.66 uIU/mL (0.55-4.78) Influenza Type A Antigen Negative (Negative) Influenza Type B Antigen Negative (Negative) SARS-CoV-2 Antigen (Rapid) Negative (NEGATIVE) Urine Color Light-yellow (Yellow) Urine Clarity Clear (Clear) Urine pH 6.5 (5.0-9.0) Urine Specific [place] 1.011 (1.001-1.035) Urine Protein Negative (Negative) Urine Ketones 1+ (Negative) Urine Blood Negative /uL (Negative) Urine Nitrite Negative (Negative) Urine Bilirubin Negative (Negative) Urine Urobilinogen Normal mg/dL (Negative) Urine Leukocyte Esterase Negative /uL (Negative) Urine RBC <1 /hpf (0 - 4) Urine Microscopic WBC < 1 /HPF (0-5) Urine Squamous Epithelial Cells None seen /hpf (<5) Urine Bacteria None seen /hpf (None Seen) Urine Glucose Normal mg/dL (Normal) Troponin I High Sensitivity 7 ng/L (</=34) Other Laboratory Tests 04/19/25 04:57 Brief Hx & Hospital Course: see dictated note Condition at Discharge: Fair Final Diagnosis/Problems List htn Discharge Disposition: Residential [facility] Discharge Instruct/Medications Diet: Cardiac 2g Na,low cholest Activity: No Restrictions, As Tolerated Follow Up/Referral: fu with pcp in 1 wkr Medications: resume home meds script to pharmacy Scheduled Cephalexin Monohydrate (Cephalexin), 1 TAB PO TID Clindamycin Hcl (Clindamycin Hcl), 300 MG PO Q8H Doxycycline Hyclate (Doxycycline Hyclate), 1 CAP PO BID, (Reported) Furosemide (Furosemide), 1 TAB PO DAILY, (Reported) Letrozole (Letrozole), 2.5 MG PO DAILY Levofloxacin Hemihydrate (Levofloxacin), 1 TAB PO DAILY Metoprolol Tartrate (Metoprolol Tartrate), 25 MG PO EOD, (Reported) Scheduled PRN Meclizine HCl (Meclizine Hydrochloride), 1 TAB PO BIDPRN PRN for DIZZINESS, (Reported) Miscellaneous Medications Aspirin (Asa), 81 MG PO, (Reported) Discharge Statement: "Patient was advised to return to the ER or call 911 if any headaches, dizziness, shortness of breath, chest pain, abdominal pain, bleeding, fevers, or worsening of medical condition. Patient was counseled about treatment plan, medications, possible side effects, patientverbalized understanding. All questions were answered to the best of my ability. This discharge took greater then 30 minutes in planning, reviewing documentation, counseling the patient, and discussing with other team members." ASSESSMENT ASSESSMENT Assessment htn Date of Service: Apr 20, 2025 Billing Provider: LUCY PIKE MD Common Visit Codes: [id number] DISCH DAY >30min LUCY PIKE MD Apr 20, 2025 12:17
[2025-04-20] MEDS ORDERED: LISI10TA34 PO (12:20)
[2025-04-20] MEDS ORDERED: MECL1TAB42 PO (12:20)
[2025-04-20 13:00] VITALS: BP 128/68; PULSE 71; RESP 16; TEMP 98; O2SAT 93
--- NOTE | 2025-04-20 13:23 | DVHDS ---
DATE OF DISCHARGE: 04/20/2025 HISTORY OF PRESENT ILLNESS: The patient is an 80-year-old lady who is admitted with complaining of worsening dizziness and a history of COPD, hypertension, and asthma. HOSPITAL COURSE: The patient had MRI of the brain that showed no evidence of acute infarct. She was seen in Neurology consult. Carotid Doppler showed no significant stenosis. The patient's echocardiogram showed an ejection fraction of 55%. The patient had an elevated blood pressure and was started on treatment with lisinopril with improvement of blood pressure. She will now be discharged to [facility] to resume her home medications as well as to be on lisinopril 10 mg daily and meclizine p.r.n. for dizziness. She will follow up with her primary in 1 week. FINAL DIAGNOSES: * Dizziness, questionably autonomic imbalance, questionable vestibular dysfunction. * Hypertension, likely accelerated. * History of breast cancer. * Asthma/COPD. Time spent in discharge planning and review of plan with the patient and nursing was 38 minutes. MD CURTIS Nicolas/GAEL TID: [id number] RECEIPT: [id number]
== END 2025-04-20 16:28 | disposition home or self-care (01) | DRG 74 ==
LOC: ER 08:18 → OVERFLOW 14:10 → ER 14:15 → WEST WING 16:42
PROVIDERS: ADMIT Internal Medicine; ATTEND Internal Medicine
DX: G90.89 Other disorders of autonomic nervous system (principal); E87.6 Hypokalemia; H81.8X3 Other disorders of vestibular function, bilateral; F03.90 Unspecified dementia, unspecified severity, without behavioral disturbance, psychotic disturbance, mood disturbance, and anxiety; J45.909 Unspecified asthma, uncomplicated; H81.10 Benign paroxysmal vertigo, unspecified ear; I16.0 Hypertensive urgency; J44.89 Other specified chronic obstructive pulmonary disease; G51.0 Bell's palsy; Z79.899 Other long term (current) drug therapy; Z88.2 Allergy status to sulfonamides; Z79.82 Long term (current) use of aspirin; Z79.2 Long term (current) use of antibiotics; Z90.710 Acquired absence of both cervix and uterus; Z82.49 Family history of ischemic heart disease and other diseases of the circulatory system; Z82.3 Family history of stroke; Z80.1 Family history of malignant neoplasm of trachea, bronchus and lung; Z80.0 Family history of malignant neoplasm of digestive organs; Z85.3 Personal history of malignant neoplasm of breast
CPT/HCPCS: 36415; 70551; 71045; 80048; 80053; 81001; 82607; 84443; 84484; 85025; 87426; 87804; 93005; 93306; 93886; 97163; 99291; 99292; G0378